=== PATIENT | male | born 1970 | race Two or more races ===

== ENCOUNTER 2024-11-05 16:37 | Inpatient (IN) | payer BC, OTHER ==
[~2024-11-05] VITALS: Ht 162.6 cm; Wt 73.3 kg
--- NOTE | 2024-11-05 16:47 | ED.PDOC ---
HPI Comments HPI: M who is slovak speaking was BIBA w/ the c/c of hypotension. EMS report that the pt was picking up some paper work at Dr. Juliann Leblanc when they checked the pt in due from looking weak and having jaundice for which the pt had a BP of 72/53 and called EMS. Upon EMS arrival the pt informed them that he started Dialysis for Kidney Failure and Chemo Therapy for Liver Cancer this month. EMS note that the Pt's O2 SAT was 98%RA. Denies Any other Symptoms. Patient is not currently on hospice. Initial Vitals BP:72/53 O2 Sat:98% RA Past Medical history: Dialysis for Kidney Failure (Friday, , Friday), Liver Cancer with possible meds and is in Chemo Therapy Past Surgical history: Denies Any Medications: Social History: Denies smoking, ETOH, and drug use. Allergies: NKDA HPI: Poor Historian. REVIEW OF SYSTEMS: CONSTITUTIONAL: Denies acute: fever, diaphoresis, chills, HEAD: Denies acute: headache, photophobia Eyes: Denies acute: Double vision, vision loss, eye pain, eye discharge. EARS: Denies acute: tinnitus, hearing loss, ear discharge, ear pain, THROAT: Denies acute: sore throat, swelling, difficulty swallowing , pain with swallowing, change in voice. NECK: Denies acute: neck pain, neck swelling, stiff neck. HEART: Denies acute : chest pain, palpitations, LUNGS: Denies acute: SOB, wheezing, cough, hemoptysis ABDOMEN: Denies acute: , Nausea, Vomiting, diarrhea, melena , hematemesis, hematochezia SKIN: Denies acute: rash, redness, lesions, itchiness. EXTREMITIES: Denies acute: calf pain, numbness, tingling, weakness, denies pain in extremity. Denies acute: Low back pain. Neuro: Denies acute: focal neurological deficit, motor or sensory focal neurological deficit, tremors, seizure like activity, confusion, dizziness, change in mental status, loss of bowel or bladder function, cauda equina like symptoms. : Denies acute: dysuria, hematuria, flank pain, increase in urinary frequency. PSYCH: Denies acute: hallucination, suicidal ideation, homicidal ideation. PHYSICAL EXAM: General: -----xnxe-yo-xxommbis---acute distress, awake and alert. Head: normocephalic, atraumatic. Neck: supple, trachea is midline, no swelling. Throat: Normal phonation. Eyes:, no erythema, no purulent discharge, no proptosis, Heart: regular rate, regular rhythm, no significant murmur appreciated. Lungs: no apparent respiratory distress, Able to speak in full sentences. No wheezing, no rhonchi, no crackles. No stridors Clear to auscultation bilaterally. Abdomen: generalized tender to palpation, non distended, soft, no guarding, no rebound, + bowel sounds. Neuro: Awake, Alert, oriented to name, self, situation, follows commands GCS=15. Speech is normal. Skin: no petechia, no purpura, no cyanosis, non-pale, noted jaundice. Lower extremities: --3/4 b/l - Pitting edema no deformity, no focal swelling, no calf TTP. Makes eye contact. moves all four extremities. Face: no apparent facial droop. ED COURSE: DISCLAIMER: This medical document was created using an electronic medical record system with voice recognition software and computerized dictation system. Although this document has been carefully reviewed, there might still be some phonetic and typographical errors. Occasional wrong-word or "sound-alike" substitutions may have occurred due to the inherent limitations of voice recognition software. These areas are purely typographical due to imperfections of the software programs and do not reflect any compromise in the patient's medical care. Please read the chart carefully and recognize, using context, where these substitutions have occurred. Time Seen by MD: 16:45 Reviewed Notes: Nurses Notes, Medications, Allergies Allergies: Coded Allergies: NO KNOWN ALLERGIES (Unverified , 11/05/24) Home Meds No Active Prescriptions or Reported Meds Information Source: Emergency Med Personnel Mode of Arrival: EMS Past Medical History PAST MEDICAL HISTORY: Cancer (Liver Cancer and is in Chemo Therapy), ESRD (Friday, , Friday) Surgical History: Denies all surgeries Family History Family History: Reviewed,noncontributory to illness, Unknown Social History Smoker: Non-Smoker Alcohol: Denies ETOH Use Drugs: Denies Drug Use Lives In: Home Was a procedure done? Was a procedure done?: No CP Differential Dx Differential Diagnosis: N/A Comment As far as generalized weakness: Includes but not limited to thyroid disease, encephalopathy, electrolyte abnormality, sepsis, infection, intracranial pathology, drug adverse effects, arrhythmia, kidney insufficiency, ACS, CVA, malignancy, anemia X-Ray, Labs, Meds, VS Vital Signs Date Time Temp Pulse Resp B/P (MAP) Pulse Ox O2 Delivery O2 Flow Rate FiO2 11/05/24 20:00 98 11/05/24 20:00 97.7 97 16 88/55 (66) 98 97.7 11/05/24 18:00 91 16 92/56 (68) 98 11/05/24 17:52 95 Room Air* 0 21 11/05/24 17:40 82 16 98 Room Air* 0 21 11/05/24 17:15 97.4 86 16 86/54 (65) 98 97.4 11/05/24 17:08 98.6 86 20 81/57 98 98.6 11/05/24 16:41 87 Lab Test 11/05/24 19:55 11/05/24 19:31 11/05/24 18:08 11/05/24 17:10 Range/Units Prothrombin Time 41.4 H 9.3-11.8 sec Prothrombin Time INR 4.54 *H 0.9-1.15 Activated Partial Thromboplast Time 61.6 H 24.5-34.5 SEC Troponin I High Sensitivity 28 30 27 </=54 ng/L Lactic Acid Level 2.0 2.5 *H 0.4-2.0 mmol/L White Blood Count 18.3 H 4.4-10.8 10^3/uL Red Blood Count 3.22 L 4.5-5.90 10^6/uL Hemoglobin 9.9 L 13.5-17.5 g/dL Hematocrit 29.1 L 41.0-53.0 % Mean Corpuscular Volume 90.3 80.0-100.0 fL Mean Corpuscular Hemoglobin 30.7 28.0-32.0 pg Mean Corpuscular Hemoglobin Concent 34.0 32.0-36.0 g/dL Red Cell Distribution Width 19.6 H 11.8-14.3 % Platelet Count 151 140-450 10^3/uL Mean Platelet Volume 8.7 6.9-10.8 fL Neutrophils (%) (Auto) 62.9 37.0-80.0 % Lymphocytes (%) (Auto) 31.2 10.0-50.0 % Monocytes (%) (Auto) 4.9 0.0-12.0 % Eosinophils (%) (Auto) 0.4 0.0-7.0 % Basophils (%) (Auto) 0.6 0.0-2.0 % Neutrophils # (Auto) 11.5 H 1.6-8.6 10 ^3/uL Lymphocytes # (Auto) 5.7 H 0.4-5.4 10 ^3/uL Monocytes # (Auto) 0.9 0-1.3 10 ^3/uL Eosinophils # (Auto) 0.1 0-0.8 10 ^3/uL Basophils # (Auto) 0.1 0-0.2 10 ^3/uL Nucleated Red Blood Cells 0.1 % B-Type Natriuretic Peptide 348.36 0-100 pg/mL Sodium Level 129 L 136-145 mmol/L Potassium Level 3.6 3.5-5.1 mmol/L Chloride Level 89 L 98-107 mmol/L Carbon Dioxide Level 29 20-31 mmol/L Anion Gap 11 5-15 Blood Urea Nitrogen 32 H 9-23 mg/dL Creatinine 3.61 H 0.700-1.30 mg/dL Glomerular Filtration Rate Calc 19 >90 mL/min BUN/Creatinine Ratio 8.9 L 10.0-20.0 Serum Glucose 79 74-106 mg/dL Calcium Level 8.7 8.7-10.4 mg/dL Magnesium Level 2.1 1.6-2.6 mg/dL Total Bilirubin > 35.0 H 0.2-1.0 mg/dL Aspartate Amino Transferase (AST) 275 H 13-40 U/L Alanine Aminotransferase (ALT) 144 H 7-40 U/L Alkaline Phosphatase 1498 H 46-116 U/L Total Protein 4.2 L 5.7-8.2 g/dL Albumin 2.7 L 3.2-4.8 g/dL Lipase 25 12-53 U/L Test 11/05/24 17:01 Range/Units POC Glucose 73 70-106 mg/dl [facility] [address] [facility] [address] Ph: [phone] DIAGNOSTIC IMAGING Diagnostic Imaging Report : [id number] Signed PATIENT: MARTA PARISI ACCT: [id number] UNIT: [id number] : 1970 LOC: ER ROOM / BED: / AGE / SEX: 54 / M ADM STATUS: REG ER SERVICE 165 ORDERING PHYSICIAN: ANGE AGUAYO DO PROCEDURE(s): CXRP - CHEST PORTABLE REASON: hypotension ORDER NUMBER(s): [id number], ACCESSION NUMBER(s): [id number] CHEST RADIOGRAPH Indication: hypotension Technique: XY CHEST PORTABLE COMPARISON: None FINDINGS: Right IJ catheter tip projects over the cavoatrial junction. The cardiac silhouette is enlarged. The lungs demonstrate bilateral patchy airspace opacities. The pulmonary vasculature is prominent. Small bilateral pleural effusion. There is no pneumothorax. IMPRESSION: As above ATED BY: ULI HORAN MD DICTATED DATE/TIME: 11/05/241741 SIGNED BY: ULI HORAN MD SIGNED DATE/TIME: 11/05/241741 [place] [address] Ph: [phone] DIAGNOSTIC IMAGING Diagnostic Imaging Report : [id number] Signed PATIENT: MARTA PARISI ACCT: [id number] UNIT: [id number] : 1970 LOC: ER ROOM / BED: / AGE / SEX: 54 / M ADM STATUS: REG ER SERVICE 165 ORDERING PHYSICIAN: ANGE AGUAYO DO PROCEDURE(s): ABPL - CT AB PEL WO CON-NO ORAL OR IV REASON: hypotension, abd pain, liver Ca ORDER NUMBER(s): [id number], ACCESSION NUMBER(s): [id number] COMPUTERIZED TOMOGRAPHY ABDOMEN AND PELVIS WITHOUT CONTRAST REASON FOR EXAM: hypotension, abd pain, liver Ca COMPARISON: None TECHNIQUE: Spiral scans were acquired from the diaphragm to the symphysis pubis without intravenous contrast administration. 2-D coronal and sagittal reformatted images were provided. Radiation optimization: All CT scans at this facility use at least one of these dose optimization techniques: Automated exposure control mA and/or kV adjustment per patient size (includes targeted exams where dose is matched to clinical indication) or iterative reconstruction. RADIATION DOSE: CTDI: 16 mGy DLP: 941 mGy-cm FINDINGS: There is a 5 mm pulmonary nodule in the right upper lobe near the minor fissure. There is mild dependent atelectasis in bilateral lower lobes. There are small bilateral pleural effusions, casm-[id number]-[id number]-right. There is no pericardial effusion. There is partial visualization of a catheter with the tip in the right atrium. Evaluation of the abdominal organs is suboptimal in the absence of intravenous contrast. Evaluation is further degraded by streak artifact from the patient's arms. The spleen is not enlarged. The liver is significantly enlarged and contains numerous masses, most of which are hypodense but some of which contain hyperdense material. No definite calcified gallstone is identified. The gallbladder wall appears thickened. There is a small amount of ascites. There is bilateral intrahepatic biliary dilation likely secondary to compression of the biliary tree near the hilum. There is a 1.3 cm short axis lymph node at the hepatic hilum. Unenhanced appearance of the pancreas is grossly unremarkable. The adrenal glands are within normal limits. The kidneys are similar in size. There is no hydronephrosis of either kidney. 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 The urinary bladder is grossly unremarkable. The prostate and seminal vesicles are within normal limits. The colonic stool burden is small to moderate. The appendix is not seen. The rectal wall appears diffusely thickened although this may be due to nondistention. There is diffuse anasarca. There is no abdominal aortic aneurysm. There is no distention of the small bowel to suggest bowel obstruction. No acute osseous abnormality is identified. IMPRESSION: Hepatomegaly with numerous liver masses. Small amount of ascites. Diffuse anasarca Gallbladder wall thickening, likely secondary to ascites. Evaluation of the abdominal organs is suboptimal in the absence of intravenous contrast. Small bilateral pleural effusions, [id number]-kkgg-right. ATED BY: TACHO BORGES MD DICTATED DATE/TIME: 11/05/241812 SIGNED BY: TACHO BORGES MD SIGNED DATE/TIME: 11/05/241812 CC: Time of 1ST Reevaluation: 17:15 Reevaluation 1ST: Unchanged Time of 2ND Reevaluation: 21:15 (Earlier we were told that the patient baseline blood pressure runs low.) Patient Education/Counseling: Diagnosis, Treatment, Prognosis Family Education/Counseling: No Family Present Comments MDM: patient presented with the above HPI.------workup was initiated. patient was found with the above mentioned diagnosis. the following medications were ordered: please refer to order lists of meds and tests obtained by myself Dr. Aguayo. Patient ED course and VS have been stabilized. Patient has been reassessed in the ED and remained in a stable condition. Pertinent incidental findings were discussed with the patient and/or family. Patient/family voices understanding and is agreeable with plan. Patient has been observed in the ED adequate length of time to insure improvement/stability. Escalation of care considered: Consideration of escalation to observation or admission Patient has baseline hypotension. Patient appears very weak and jaundice. Patient was ADMITTED to the medicine team for further evaluation and treatment of their presentation. All the reports of any imaging studies that were ordered by myself were reviewed by myself. SEPSIS Sepsis Screen Physician Orders Electrocardigram (11/05/24 16:44) Mail Distribution Clerk (11/05/24 ) Chest Portable (11/05/24 16:51) Ct Ab Pel Wo Con-No Oral Or Iv (11/05/24 16:51) Vital Signs Date Time Temp Pulse Resp B/P (MAP) Pulse Ox O2 Delivery O2 Flow Rate FiO2 11/05/24 20:00 98 11/05/24 20:00 97.7 97 16 88/55 (66) 98 97.7 11/05/24 18:00 91 16 92/56 (68) 98 11/05/24 17:52 95 Room Air* 0 21 11/05/24 17:40 82 16 98 Room Air* 0 21 11/05/24 17:15 97.4 86 16 86/54 (65) 98 97.4 11/05/24 17:08 98.6 86 20 81/57 98 98.6 11/05/24 16:41 87 Laboratory Tests Test 11/05/24 17:10 11/05/24 18:08 11/05/24 19:31 Lactic Acid Level 2.5 mmol/L (0.4-2.0) *H 2.0 mmol/L (0.4-2.0) White Blood Count 18.3 10^3/uL (4.4-10.8) H Departure 1 Departure Time of Disposition: 19:02 Impression: Primary Impression: Hypotension Additional Impressions: Liver cancer Jaundice Hyperbilirubinemia Hypoalbuminemia Chronic renal failure End-stage renal disease on hemodialysis Leukocytosis Elevated LFTs Disposition: ADMITTED INPATIENT Admit to: Tele Condition: Guarded e-Prescriptions No Active Prescriptions or Reported Meds Discharged With: Self Critical Care Note Critical Care Time?: Yes (1 hr-critical care time only) Heart Score Heart Score: Heart Score Response (Comments) Value History N/A 0 EKG N/A 0 Age N/A 0 Risk Factors N/A 0 Troponin N/A 0 Total 0 I personally scribed for ANGE AGUAYO DO ([email or web address]) on 11/05/24 at 16:47. Electronically submitted by Jamey Collins ([email or web address]). I personally scribed for ANGE AGUAYO DO ([email or web address]) on 11/05/24 at 18:09. Electronically submitted by Jamey Collins ([email or web address]). ANGE AGUAYO DO Nov 05, 2024 16:47
[2024-11-05] MEDS: SODIUM CHLORIDE 0.9% 500 ML IV ONE (17:13)
[2024-11-05 17:40] VITALS: PULSE 82; RESP 16; O2SAT 98
--- NOTE | 2024-11-05 17:42 | DVH ---
CHEST RADIOGRAPH Indication: hypotension Technique: XY CHEST PORTABLE COMPARISON: None FINDINGS: Right IJ catheter tip projects over the cavoatrial junction. The cardiac silhouette is enlarged. The lungs demonstrate bilateral patchy airspace opacities. The pu lmonary vasculature is prominent. Small bilateral pleural effusion. There is no pneumothorax. IMPRESSION: As above
[2024-11-05 17:45] LABS: Calcium 8.7 mg/dL (8.7-10.4); Potassium 3.6 mmol/L (3.5-5.1)
[2024-11-05 17:46] LABS: Bilirubin, Total > 35.0 mg/dL (0.2-1.0); Chloride 89 mmol/L (98-107); Sodium 129 mmol/L (136-145)
[2024-11-05] MEDS: DEXTROSE (25%) 10 ML SYRG IV ONE (17:49)
[2024-11-05 18:03] LABS: Anion Gap 11 (5-15); BUN/Creatinine Ratio 8.9 (10.0-20.0)
--- NOTE | 2024-11-05 18:15 | DVH ---
COMPUTERIZED TOMOGRAPHY ABDOMEN AND PELVIS WITHOUT CONTRAST REASON FOR EXAM: hypotension, abd pain, liver Ca COMPARISON: None TECHNIQUE: Spiral scans were acquired from the diaphragm to the symphysis pubis without intravenous c ontrast administration. 2-D coronal and sagittal reformatted images were provided. Radiation optimiza tion: All CT scans at this facility use at least one of these dose optimization techniques: Automated exposure control mA and/or kV adjustment per patient size (includes targeted exams where dose is mat ched to clinical indication) or iterative reconstruction. RADIATION DOSE: CTDI: 16 mGy DLP: 941 mGy-cm FINDINGS: There is a 5 mm pulmonary nodule in the right upper lobe near the minor fissure. There is mild depend ent atelectasis in bilateral lower lobes. There are small bilateral pleural effusions, noas-aihoeof-x leyva-right. There is no pericardial effusion. There is partial visualization of a catheter with the ti p in the right atrium. Evaluation of the abdominal organs is suboptimal in the absence of intravenous contrast. Evaluation i s further degraded by streak artifact from the patient's arms. The spleen is not enlarged. The liver is significantly enlarged and contains numerous masses, most of which are hypodense but some of which contain hyperdense material. No definite calcified gallstone is identified. The gallbladder wall abigail ears thickened. There is a small amount of ascites. There is bilateral intrahepatic biliary dilation likely secondary to compression of the biliary tree near the hilum. There is a 1.3 cm short axis lymp h node at the hepatic hilum. Unenhanced appearance of the pancreas is grossly unremarkable. The adren al glands are within normal limits. The kidneys are similar in size. There is no hydronephrosis of e ither kidney. 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 The urinary bladder i s grossly unremarkable. The prostate and seminal vesicles are within normal limits. The colonic stool burden is small to moderate. The appendix is not seen. The rectal wall appears diffusely thickened a lthough this may be due to nondistention. There is diffuse anasarca. There is no abdominal aortic ane urysm. There is no distention of the small bowel to suggest bowel obstruction. No acute osseous abnor mality is identified. IMPRESSION: Hepatomegaly with numerous liver masses. Small amount of ascites. Diffuse anasarca Gallbladder wall thickening, likely secondary to ascites. Evaluation of the abdominal organs is suboptimal in the absence of intravenous contrast. Small bilateral pleural effusions, fhiu-[id number]-xbpr-right.
[2024-11-05 18:16] LABS: Alanine Aminotransferase 144 U/L (7-40); Albumin 2.7 g/dL (3.2-4.8); Alkaline Phosphatase 1498 U/L (46-116); Blood Urea Nitrogen 32 mg/dL (9-23); Carbon Dioxide 29 mmol/L (20-31); Glucose 79 mg/dL (74-106); Lipase 25 U/L (12-53); Magnesium 2.1 mg/dL (1.6-2.6); Total Protein 4.2 g/dL (5.7-8.2)
[2024-11-05 18:19] LABS: Lactic Acid w/Reflex 2.5 mmol/L (0.4-2.0)
[2024-11-05 18:24] LABS: Hematocrit 29.1 % (41.0-53.0); Hemoglobin 9.9 g/dL (13.5-17.5); Mean Corpuscular Hemoglobin 30.7 pg (28.0-32.0); Mean Corpuscular Volume 90.3 fL (80.0-100.0); Nucleated Red Blood Cells % 0.1 %
[2024-11-05] MEDS: ALBUMIN 25% 100 ML IV ONE (19:25)
[2024-11-05] MEDS: ALBUMIN 25% 50 ML IV ONE (20:41)
[2024-11-05] MEDS: LACTATED RINGER'S 500 ML IV ONE (20:41)
[2024-11-05] MEDS ORDERED: DOCUSATE SOD 100 MG CAP PO PRN (20:45)
[2024-11-05] MEDS ORDERED: ONDANSETRON HCL 4 MG/2 ML VIAL IV PRN (20:45)
[2024-11-05] MEDS ORDERED: MORPHINE SULFATE INJ 2 MG/ml SYRG IV PRN (20:45)
[2024-11-05] MEDS ORDERED: NITROGLYCERIN 0.4 MG SL TAB SL PRN (20:45)
[2024-11-05] MEDS ORDERED: ACETAMINOPHEN 325 MG TAB PO PRN (20:45)
--- NOTE | 2024-11-05 23:23 | ECG ---
[facility] Test Date: 2024-11-05 Test Time: 16:41:49 Pat Name: MARTA PARISI Department: Room: [address] [place] [address] Gender: M Program Support Clerk: LIA : 1970 Requested By: ANGE AGUAYO Order Number: [id number] Reading MD: Ken Zabala Measurements Intervals Francis Rate: 87 P: 31 MD: 152 QRS: 31 QRSD: 95 T: 36 QT: 375 QTc: 451 Interpretive Statements Sinus rhythm Electronically Signed On 11-06-2024 16:45:02 PDT by Ken Zabala Please click the below link to view image of tracing.
[2024-11-05] MEDS: SODIUM CHLORIDE 0.9% 1,000 ML IV ONE (23:24)
[2024-11-06] VITALS (8 sets, daily range): BP systolic 91–99; BP diastolic 55–60; PULSE 90–100; RESP 16–22; TEMP 97.7–98.2; O2SAT 93–95
[2024-11-06 00:22] LABS: Partial Thromboplastin Time 61.6 SEC (24.5-34.5); Prothrombin Time 41.4 sec (9.3-11.8)
[2024-11-06 00:30] LABS: INR 4.54 (0.9-1.15)
[2024-11-06] MEDS ORDERED: VANCOMYCIN PER PHARMACY 0 MG IV SCH (00:30)
[2024-11-06] MEDS: VANCOMYCIN 1GM/250ML KIT 250 ML IV SCH (01:36)
[2024-11-06] MEDS: PIPERACILLIN-TAZOB 3.375GM 100 ML IV ONE (03:53)
[2024-11-06 04:53] LABS: Hematocrit 25.5 % (41.0-53.0); Hemoglobin 8.8 g/dL (13.5-17.5); Mean Corpuscular Hemoglobin 31.0 pg (28.0-32.0); Mean Corpuscular Volume 89.9 fL (80.0-100.0)
[2024-11-06 04:59] LABS: Calcium 9.0 mg/dL (8.7-10.4); Potassium 3.6 mmol/L (3.5-5.1)
[2024-11-06 05:08] LABS: Alkaline Phosphatase 1352 U/L (46-116); Chloride 90 mmol/L (98-107); Sodium 128 mmol/L (136-145)
[2024-11-06 05:22] LABS: Anion Gap 11 (5-15); BUN/Creatinine Ratio 7.9 (10.0-20.0)
[2024-11-06] MEDS: LACTATED RINGER'S 1,000 ML IV SCH (05:24)
[2024-11-06 05:38] LABS: Blood Urea Nitrogen 31 mg/dL (9-23); Carbon Dioxide 27 mmol/L (20-31); Glucose 73 mg/dL (74-106)
[2024-11-06 05:39] LABS: Alanine Aminotransferase 126 U/L (7-40); Albumin 2.8 g/dL (3.2-4.8); Total Protein 4.1 g/dL (5.7-8.2)
[2024-11-06 05:57] LABS: Smudge Cells 1 /100 WBC; Total Cells Counted 100.0 (100)
[2024-11-06 06:16] LABS: Bilirubin, Total 33.1 mg/dL (0.2-1.0)
--- NOTE | 2024-11-06 06:38 | DVH ---
EXAM: US LIVER HISTORY: Rule out hepatobiliatry tree pathology, abdominal distention COMPARISON: CT scan of the abdomen and pelvis dated 11/05/2024. TECHNIQUE: Right upper quadrant abdominal ultrasound was performed. FINDINGS: Sludge and gallstones are identified in the gallbladder, without gallbladder wall thickening. The pat ient was not tender to transducer pressure over the gallbladder. There is marked heterogeneous attenu ation throughout the liver. The liver measures 21.1 cm longitudinal. There is hepatopetal portal veno us color Doppler flow. The common duct measures 5.6mm in diameter. The partially visualized pancreas is unremarkable. The intrahepatic portion of the IVC is patent. No upper abdominal aortic ectasia. Th e right kidney measures 12.9 cm in length and is normal in appearance. The left kidney measures 11.1 cm in length and is normal in appearance. The spleen was not visualized sonographically. There are sm all bilateral pleural effusions. IMPRESSION: 1. Hepatomegaly and marked heterogeneous attenuation throughout the liver. It is uncertain if this ap pearance is due to advanced cirrhosis and/or diffuse neoplastic infiltration. 2. Small bilateral pleural effusions. 3. Cholelithiasis and gallbladder sludge without other sonographic evidence of acute cholecystitis.
--- NOTE | 2024-11-06 06:40 | DVHHPRES ---
History of Present Illness Resident Creating Document: CAROLE LOPEZ RESIDENT History of Present Illness Garcia Burns is a 54-year-old male with past medical history of liver cancer diagnosed approximately 2 months ago, ESRD and on dialysis since 1 month came to the ED with chief complaints of feeling weak and hypotension which was 72/ 53 at clinic. Patient states that he has had jaundice since 1 month and is undergoing chemotherapy since 2 months. Patient denies any nausea, headaches, dizziness, dysuria, blood in the stool. Patient stated that he had 1 episode of vomiting which was nonbloody, green watery stools 4 days ago. Patient is on 1.5 L oxygen and does not use home oxygen. His last bowel movement was 4 days ago. Patient states that he has 15 lb weight loss since the last 2 months. Past surgical history: Denies Family history: Reviewed, noncontributory Social history: Patient quit smoking 8 months ago, and patient's last alcohol drink was 4 months ago, denies any drug use Lives with: Family PCP: Dr. Queen Review of Systems Review of Systems Generalized jaundice Constitutional: Yes: Weakness, Other (Weight loss) Eyes: Other (Jaundice) ENT: No: Ear pain, Ear discharge, Nose pain, Nose discharge, Nose congestion, Mouth pain, Mouth swelling, Throat pain, Throat swelling, Other Respiratory: Shortness of breath; No: Cough, Dry, SOB with excertion, Wheezing, Hemoptysis, Pleuritic Pain, Sputum, Wheezing, Other Cardiovascular: No: Chest Pain, Palpitations, Orthopnea, Paroxysmal Noc. Dyspnea, Edema, Lt Headedness, Other Gastrointestinal: No: Nausea, Vomiting, Abdominal Pain, Diarrhea, Constipation, Melena, Hematochezia, Other Genitourinary: No Dysuria, No Frequency, No Incontinence, No Hematuria, No Retention, No Other Musculoskeletal: No: other, neck pain, shoulder pain, arm pain, back pain, hand pain, leg pain, foot pain Skin: No: Rash, Lesions, Jaundice, Bruising, Other Neurological: No: Weakness, Numbness, Incoordination, Change in speech, Confusion, Seizures, Other Allergies: Coded Allergies: NO KNOWN ALLERGIES (Unverified , 11/05/24) Medications Current Medications Medications Dose Ordered Sig/Darryl Route Start Time Stop Time Status Last Admin Dose Admin Acetaminophen/ Hydrocodone Bitart 1 tab Q4HP PRN PO 8/29/25 20:45 Ondansetron HCl 4 mg Q4HP PRN IV 11/05/24 20:45 Docusate Sodium 100 mg BIDPRN PRN PO 11/05/24 20:45 Morphine Sulfate 2 mg Q4HPRN PRN IV 11/05/24 20:45 Piperacillin Sod/ Tazobactam Sod 100 ml @ 25 mls/hr Q12HR IV 11/06/24 10:00 Vancomycin HCl 0 ml @ 0 mls/hr UD IV 11/06/24 00:30 UNV Lactated Ringer's 1,000 ml @ 50 mls/hr Q20H IV 11/06/24 00:30 11/06/24 05:24 50 MLS/HR Exam Vital Signs Vital Signs Date Time Temp Pulse Resp B/P (MAP) Pulse Ox O2 Delivery O2 Flow Rate FiO2 11/06/24 04:00 101 11/06/24 03:00 99/58 (72) 11/06/24 01:30 94 11/06/24 00:30 16 11/05/24 22:00 97.6 97.6 11/05/24 17:52 Room Air* 0 21 Exam General: Patient alert and oriented in person, place and time. Patient following commands. Generalized jaundice HEENT: Normocephalic, atraumatic, moist mucous membranes Respiratory/pulmonary: Clear lungs bilaterally, vesicular murmurs present in almost all lung poon, no associated crackles or wheezes. Cardiovascular: Normal heart sounds S1 and S2 with no associated murmurs Abdomen: there is no pain to palpation in any of the abdominal quadrants, no palpable masses. Moderately distended Extremities: Bilateral +1 pitting edema Peripheral Pulses: 3+ Radial (R). 3+ Radial (L). 3+ Dorsalis pedis (R). 3+ Dorsalis pedis(L) Skin: No rashes or pruritus, there is no sacral edema present at this time. Neurological: Intact cranial nerves with no focal neurologic deficits Rectal Exam : No masses were detected, no blood was seen on finger Labs/Xrays Labs Test 11/06/24 04:25 11/06/24 01:17 11/05/24 19:55 11/05/24 19:31 Range/Units White Blood Count 20.0 H 4.4-10.8 10^3/uL Red Blood Count 2.84 L 4.5-5.90 10^6/uL Hemoglobin 8.8 L 13.5-17.5 g/dL Hematocrit 25.5 #L 41.0-53.0 % Mean Corpuscular Volume 89.9 80.0-100.0 fL Mean Corpuscular Hemoglobin 31.0 28.0-32.0 pg Mean Corpuscular Hemoglobin Concent 34.5 32.0-36.0 g/dL Red Cell Distribution Width 20.0 H 11.8-14.3 % Platelet Count 147 140-450 10^3/uL Mean Platelet Volume 8.7 6.9-10.8 fL Neutrophils (%) (Auto) 37.0-80.0 % Lymphocytes (%) (Auto) 10.0-50.0 % Monocytes (%) (Auto) 0.0-12.0 % Basophils (%) (Auto) 0.0-2.0 % Neutrophils # (Auto) 1.6-8.6 10 ^3/uL Lymphocytes # (Auto) 0.4-5.4 10 ^3/uL Monocytes # (Auto) 0-1.3 10 ^3/uL Differential Total Cells Counted 100.0 100 Neutrophils % (Manual) 81 H 37.0-80.0 Band Neutrophils % (Manual) 0 Lymphocytes % (Manual) 12 10.0-50.0 Monocytes % (Manual) 5 0-12 Eosinophils % (Manual) 0 0-7 Basophils % (Manual) 0 0.0-2.0 Metamyelocytes % (manual) 0 Myelocytes % (Manual) 0 Promyelocytes % (Manual) 0 Blast Cells % (Manual) 0 Reactive Lymphocytes 2 Smudge Cells 1 /100 WBC Platelet Estimate Decreased Sodium Level 128 L 136-145 mmol/L Potassium Level 3.6 3.5-5.1 mmol/L Chloride Level 90 L 98-107 mmol/L Carbon Dioxide Level 27 20-31 mmol/L Anion Gap 11 5-15 Blood Urea Nitrogen 31 H 9-23 mg/dL Creatinine 3.94 H 0.700-1.30 mg/dL Glomerular Filtration Rate Calc 17 >90 mL/min BUN/Creatinine Ratio 7.9 L 10.0-20.0 Serum Glucose 73 L 74-106 mg/dL Calcium Level 9.0 8.7-10.4 mg/dL Total Bilirubin > 35.0 H 0.2-1.0 mg/dL Aspartate Amino Transferase (AST) 244 H 13-40 U/L Alanine Aminotransferase (ALT) 126 H 7-40 U/L Alkaline Phosphatase 1352 H 46-116 U/L Total Protein 4.1 L 5.7-8.2 g/dL Albumin 2.8 L 3.2-4.8 g/dL Ammonia 47 H 11-32 umol/L Plasma/Serum Blood Alcohol < 3.0 <10 mg/dL Prothrombin Time 41.4 H 9.3-11.8 sec Prothrombin Time INR 4.54 *H 0.9-1.15 Activated Partial Thromboplast Time 61.6 H 24.5-34.5 SEC Troponin I High Sensitivity 28 </=54 ng/L Lactic Acid Level 2.0 0.4-2.0 mmol/L Test 11/05/24 18:08 11/05/24 17:10 11/05/24 17:01 Range/Units Eosinophils (%) (Auto) 0.4 0.0-7.0 % Eosinophils # (Auto) 0.1 0-0.8 10 ^3/uL Basophils # (Auto) 0.1 0-0.2 10 ^3/uL Nucleated Red Blood Cells 0.1 % B-Type Natriuretic Peptide 348.36 0-100 pg/mL Magnesium Level 2.1 1.6-2.6 mg/dL Lipase 25 12-53 U/L POC Glucose 73 70-106 mg/dl SEPSIS Sepsis Screen Date sepsis recognized/suspect: Nov 05, 2024 Time Sepsis recognized/suspect: 1744 Recent Procedure: No On Antibiotic Therapy: No Respiratory Rate >20: No Heart Rate >90: No Temp<36 C (96.8 F) or >38.3 C: No SBP <90 or MAP <65 mmHG: Yes New Acute Mental Status Change: No Is the patient on CPAP, BIPAP,: No Physician Orders Blood Culture (11/05/24 23:48) Urinalysis (11/05/24 23:54) Drug Screen (11/05/24 23:54) Comprehensive Hepatitis Panel (11/06/24 00:24) Piperacillin-Tazob 3.375gm (Zosyn 3.375g (11/06/24 10:00) Paracentesis (11/06/24 00:24) Lactate Dehydrogenase, Fluid (11/06/24 00:24) Protein, Body Fluid (11/06/24 00:24) Body Fluid Culture W/ Gs (11/06/24 00:24) Glucose Body Fluid (11/06/24 00:24) Body Fluid Ph (11/06/24 00:24) Gram Stain (11/06/24 00:24) Body Fluids, Diff. Cell Count (11/06/24 00:24) Stool Occult Blood (11/06/24 00:24) Vancomycin Per Pharmacy (11/06/24 00:30) LIVER (11/06/24 00:24) Echo 2d Mode Cardiac Dop (11/06/24 00:24) Lactated Ringer's (11/06/24 00:30) Albumin 25% (Albutein) (11/06/24 06:00) Drug Screen (11/06/24 00:41) Vancomycin Per Pharmacy Protoc (11/06/24 00:49) Afp Serum Tumor Marker (11/06/24 02:00) Mrsa Screen (11/06/24 05:12) * Family Law Legal Assistant Consult (11/06/24 05:12) * Dietary Consult (11/06/24 05:12) Vital Signs Date Time Temp Pulse Resp B/P (MAP) Pulse Ox O2 Delivery O2 Flow Rate FiO2 11/06/24 04:00 101 11/06/24 03:00 100 99/58 (72) 11/06/24 01:30 94 96/55 (69) 94 11/06/24 00:30 97 16 93/56 (68) 94 11/06/24 00:00 99 Laboratory Tests Test 11/05/24 19:31 11/06/24 04:25 Lactic Acid Level 2.0 mmol/L (0.4-2.0) White Blood Count 20.0 10^3/uL (4.4-10.8) H Medications Medications Dose Ordered Sig/Darryl Route Start Time Stop Time Status Last Admin Dose Admin Albumin Human 50 ml @ 100 mls/hr ONCE ONCE IV 11/05/24 20:30 11/05/24 20:59 DC 11/05/24 20:41 100 MLS/HR Albumin Human 100 ml @ 100 mls/hr ONCE ONCE IV 11/05/24 19:15 11/05/24 20:14 DC 11/05/24 19:25 100 MLS/HR Ceftriaxone Sodium 50 ml @ 100 mls/hr ONCE ONCE IV 11/05/24 19:15 11/05/24 19:44 DC 11/05/24 19:24 100 MLS/HR Lactated Ringer's 500 ml @ 500 mls/hr ONCE ONCE IV 11/05/24 20:30 11/05/24 21:29 DC 11/05/24 20:41 500 MLS/HR Lactated Ringer's 1,000 ml @ 50 mls/hr Q20H IV 11/06/24 00:30 11/06/24 05:24 50 MLS/HR Piperacillin Sod/ Tazobactam Sod 100 ml @ 25 mls/hr ONCE ONCE IV 11/06/24 01:00 11/06/24 04:59 DC 11/06/24 03:53 25 MLS/HR Sodium Chloride 1,000 ml @ 1,000 mls/hr Q1H ONCE IV 11/05/24 23:00 11/05/24 23:59 DC 11/05/24 23:24 1,000 MLS/HR Vancomycin HCl 250 ml @ 250 mls/hr Q1H IV 11/06/24 01:00 11/06/24 02:59 DC 11/06/24 02:41 250 MLS/HR Assessment/Plan Assessment/Plan # Sepsis likely due to SBP # Hepatic carcinoma stage unknown # Hepatic cirrhosis likely due to and underlying Liver carcinoma # Hepatic cirrhosis versus secondary last alcohol intake due to prolonged alcohol use last alcohol drink was 4 months back # rule out acute PET hepatitis # moderate ascites # atelectasis secondary due to moderate ascites - diagnostic paracentesis with IR when INR is less than 1.5 - patient is started on IV vancomycin, Pip -Shaggy - ordered liver ultrasound - AFP ordered - albumin 25% given - Meld score: 47 - Child -Pug score - Class C, Life expectency 1-3 years. - hepatitis panel, pending # secondary hypocoagulable state, INR- 4.5 secondary due to liver failure # normocytic anemia - GI consulted - Vitamin K IV given # Hepatic encephalopathy - near high, given lactulose 30 mL, docusate sodium\ # Moderate malnutrition # metabolic encephalopathy secondary to hypoglycemia # Hyperbilirubinemia with transaminitis # hypoalbuminemia # ESRD on hemodialysis: [place]elmo consulted(Friday, , Friday) # leukocytosis Goals of care addressed with the patient for more than 27 minutes: Full code status Case discussed with Dr. Olivia , patient and nurse Plan discussed with: Patient My Orders Orders - CAROLE LOPEZ Procedure Category Date Status Time Admit ADMIT 11/05/24 Transmitted 20:36 Allergies BAY 11/05/24 In Process 20:36 Code Status CODE 11/05/24 Transmitted 20:36 Oxygen Per Hour RT 11/05/24 Transmitted 20:36 Hydrocodone-Acet PHA 11/05/24 In Process 5/325mg Tab ([place] 20:45 Ondansetron Hcl PHA 11/05/24 In Process (Zofran) 20:45 Docusate Sodium PHA 11/05/24 In Process Capsule (Colace 20:45 Npo (Nothing By DIET 11/06/24 Transmitted Mouth) Diet Breakfast Condition: Serious BAY 11/05/24 In Process 20:36 Bedrest With Bathroom BAY 11/05/24 In Process Privileg 20:36 Morphine Sulfate PHA 11/05/24 In Process Injection 20:45 Oxygen By Nasal RT 11/05/24 Transmitted Cannula 20:36 Stat Ekg For Chest BAY 11/05/24 In Process Pain 20:36 Notify Md Of Changes BAY 11/05/24 In Process From Base 20:36 E Tailer For BAY 11/05/24 In Process 24 Hours 20:36 Emergency Dysrhythmia BAY 11/05/24 In Process Protocol 20:36 Rhythm Strips Once BAY 11/05/24 In Process Every Shift 20:36 Blood Culture TAMIA 11/05/24 Uncollected 23:48 Urinalysis LAB 11/05/24 Logged 23:54 Drug Screen LAB 11/05/24 Logged 23:54 Mrsa Screen TAMIA 11/06/24 Logged 05:12 * Family Law Legal Assistant CONS 11/06/24 Transmitted Consult 05:12 * Dietary Consult CONS 11/06/24 Transmitted 05:12 Date of Service: Nov 06, 2024 Billing Provider: BRITTANY OLIVIA MD Common Visit Codes: [id number] INP/OBS CARE (HIGH) Secondary Visit Codes: [id number] CARE PLAN 30 MINUTES CAROLE LOPEZ Nov 06, 2024 06:40
[2024-11-06] MEDS: ALBUMIN 25% 100 ML IV ONE (06:51)
[2024-11-06] MEDS: PHYTONADIONE (VIT K)10 MG/ML 1ML VIAL SUBCUT ONE (07:07)
[2024-11-06] MEDS: PIPERACILLIN-TAZOB 3.375GM 100 ML IV SCH (09:52)
[2024-11-06] MEDS: LACTULOSE 20Gm/30ML SOLN PO SCH (09:52)
--- NOTE | 2024-11-06 11:34 | DVHINCON2 ---
Date of service: Nov 06, 2024 Referring Physician Gelacio Morrow [Resident] Reason for Consultation End-stage kidney disease History of Present Illness This is a 54-year-old male with history of hepatocellular cancer, acute kidney injury on intermittent hemodialysis for the past one month presenting to the emergency room because of generalized weakness and hypotension. As per the history obtained from the patient and his son who is at bedside patient undergoes treatment for his liver cancer at [place]. His last dialysis was on . Has been having ongoing issues with hypotension during dialysis. Patient has been admitted for further evaluation and workup. Past Medical History Liver cancer Acute kidney injury on intermittent hemodialysis Past Surgical History Denies Family History: Patient reports no known family medical history. Family History Family history: Reviewed, noncontributory Social History Social history: Patient quit smoking 8 months ago, and patient's last alcohol drink was 4 months ago, denies any drug use Lives with: Family PCP: Dr. Queen Allergies: Coded Allergies: NO KNOWN ALLERGIES (Unverified , 11/05/24) Home Meds No Active Prescriptions or Reported Meds Current Medications Current Medications Medications (Trade) Dose Ordered Sig/Darryl Route PRN Reason Start Time Stop Time Status Last Admin Acetaminophen (Tylenol Tablet) 325 mg Q4HP PRN PO MILD PAIN (1-3 PAIN SCALE) 11/05/24 20:45 11/06/24 00:40 DC Acetaminophen/ Hydrocodone Bitart ([place] 5/325MG Tab) 1 tab Q4HP PRN PO MODERATE PAIN (4-6 PAIN SCALE) 11/05/24 20:45 Ondansetron HCl (Zofran) 4 mg Q4HP PRN IV NAUSEA / VOMITING 11/05/24 20:45 11/06/24 10:12 DC Docusate Sodium (Colace Capsule) 100 mg BIDPRN PRN PO FOR CONSTIPATION 11/05/24 20:45 11/06/24 10:12 DC Morphine Sulfate 2 mg Q4HPRN PRN IV SEVERE PAIN (7-10 PAIN SCALE) 11/05/24 20:45 Nitroglycerin (Ntrostat Sublingual) 0.4 mg Q5MINP PRN SL FOR CHEST PAIN 11/05/24 20:45 11/05/24 23:49 DC Morphine Sulfate 2 mg Q30M PRN IV FOR CHEST PAIN 11/05/24 20:45 11/05/24 23:49 DC Piperacillin Sod/ Tazobactam Sod 100 ml @ 25 mls/hr Q12HR IV 11/06/24 10:00 11/06/24 09:52 Vancomycin HCl 0 ml @ 0 mls/hr UD IV 11/06/24 00:30 UNV Lactated Ringer's 1,000 ml @ 50 mls/hr Q20H IV 11/06/24 00:30 11/06/24 10:12 DC 11/06/24 05:24 Vancomycin HCl 250 ml @ 250 mls/hr Q1H IV 11/06/24 01:00 11/06/24 02:59 DC 11/06/24 02:41 Lactulose 30 ml BID PO 11/06/24 10:00 11/06/24 09:52 Review of Systems 12 point ROS negative except as in HPI Vital Signs Vital Signs Date Time Temp Pulse Resp B/P (MAP) Pulse Ox O2 Delivery O2 Flow Rate FiO2 11/06/24 08:45 98.2 93 17 95/60 (72) 95 98.2 11/05/24 17:52 Room Air* 0 21 Physical Exam AAOX3 HEENT: Normocephalic , Icteric Lungs : Diminished breath sounds at bases CVS : S1,S2 tachycardic Abd : Distended EQUINE BREEDER : No focal deficits Extremities: 2+ edema Labs/Diagnostic Data Labs Test 11/06/24 04:25 11/06/24 01:17 11/05/24 19:55 11/05/24 19:31 Range/Units White Blood Count 20.0 H 4.4-10.8 10^3/uL Red Blood Count 2.84 L 4.5-5.90 10^6/uL Hemoglobin 8.8 L 13.5-17.5 g/dL Hematocrit 25.5 #L 41.0-53.0 % Mean Corpuscular Volume 89.9 80.0-100.0 fL Mean Corpuscular Hemoglobin 31.0 28.0-32.0 pg Mean Corpuscular Hemoglobin Concent 34.5 32.0-36.0 g/dL Red Cell Distribution Width 20.0 H 11.8-14.3 % Platelet Count 147 140-450 10^3/uL Mean Platelet Volume 8.7 6.9-10.8 fL Neutrophils (%) (Auto) 37.0-80.0 % Lymphocytes (%) (Auto) 10.0-50.0 % Monocytes (%) (Auto) 0.0-12.0 % Basophils (%) (Auto) 0.0-2.0 % Neutrophils # (Auto) 1.6-8.6 10 ^3/uL Lymphocytes # (Auto) 0.4-5.4 10 ^3/uL Monocytes # (Auto) 0-1.3 10 ^3/uL Differential Total Cells Counted 100.0 100 Neutrophils % (Manual) 81 H 37.0-80.0 Band Neutrophils % (Manual) 0 Lymphocytes % (Manual) 12 10.0-50.0 Monocytes % (Manual) 5 0-12 Eosinophils % (Manual) 0 0-7 Basophils % (Manual) 0 0.0-2.0 Metamyelocytes % (manual) 0 Myelocytes % (Manual) 0 Promyelocytes % (Manual) 0 Blast Cells % (Manual) 0 Reactive Lymphocytes 2 Smudge Cells 1 /100 WBC Platelet Estimate Decreased Sodium Level 128 L 136-145 mmol/L Potassium Level 3.6 3.5-5.1 mmol/L Chloride Level 90 L 98-107 mmol/L Carbon Dioxide Level 27 20-31 mmol/L Anion Gap 11 5-15 Blood Urea Nitrogen 31 H 9-23 mg/dL Creatinine 3.94 H 0.700-1.30 mg/dL Glomerular Filtration Rate Calc 17 >90 mL/min BUN/Creatinine Ratio 7.9 L 10.0-20.0 Serum Glucose 73 L 74-106 mg/dL Calcium Level 9.0 8.7-10.4 mg/dL Total Bilirubin 33.1 H 0.2-1.0 mg/dL Aspartate Amino Transferase (AST) 244 H 13-40 U/L Alanine Aminotransferase (ALT) 126 H 7-40 U/L Alkaline Phosphatase 1352 H 46-116 U/L Total Protein 4.1 L 5.7-8.2 g/dL Albumin 2.8 L 3.2-4.8 g/dL Ammonia 47 H 11-32 umol/L Plasma/Serum Blood Alcohol < 3.0 <10 mg/dL Prothrombin Time 41.4 H 9.3-11.8 sec Prothrombin Time INR 4.54 *H 0.9-1.15 Activated Partial Thromboplast Time 61.6 H 24.5-34.5 SEC Troponin I High Sensitivity 28 </=54 ng/L Lactic Acid Level 2.0 0.4-2.0 mmol/L Test 11/05/24 18:08 11/05/24 17:10 11/05/24 17:01 Range/Units Eosinophils (%) (Auto) 0.4 0.0-7.0 % Eosinophils # (Auto) 0.1 0-0.8 10 ^3/uL Basophils # (Auto) 0.1 0-0.2 10 ^3/uL Nucleated Red Blood Cells 0.1 % B-Type Natriuretic Peptide 348.36 0-100 pg/mL Magnesium Level 2.1 1.6-2.6 mg/dL Lipase 25 12-53 U/L POC Glucose 73 70-106 mg/dl Assessment Acute kidney injury on intermittent hemodialysis Hepatocellular carcinoma Hypotension Edema to bilateral lower extremity Leukocytosis Coagulopathy Elevated liver enzymes Plan/Recommendation No indication for hemodialysis today as he is hemodynamically unstable. Discussed with patient and her son at bedside. Prognosis of this patient is poor. Plan discussed with: Patient, Son PATO CABRERA MD Nov 06, 2024 11:34
[2024-11-06] MEDS: MIDODRINE HCL 10 MG TAB PO SCH (12:36)
--- NOTE | 2024-11-06 14:55 | DVHSR ---
APPROVED REPORT EXAM: Two-dimensional and M-mode echocardiogram with Doppler and color Doppler. Blood Pressure: 95/60 mmHg INDICATION Rule out structural heart disease RISK FACTORS Height: 5'4", Weight: 169 DIMENSIONS LVDd4.7 (3.8-5.7cm)LA (2D)4.2 (1.9-4.0cm)Aortic Root3.7 (2.0-3.7cm) LVDs3.0 (2.5-4.0cm)LA (MM) (1.9-4.0cm)Aortic Cusp Exc1.8 (1.5-2.0cm) EF (%) 68.0 (55-70%)Rt. Atrium3.9 (1.9-4.0cm)Asc. Aorta cm IVSd0.9 (0.7-1.1cm)RV (D) (1.8-2.4cm) PWd0.8 (0.7-1.1cm) Mitral Valve MitralMitral Stenosis E wave0.75m/sMV Mean GR.mmHg A wave0.80m/sMV Peak GR.mmHg E/A ratio0.92D MVAcm2 DECEL [id number] 1/2 Timems Aortic Valve Aortic ValveAortic Stenosis V11.15m/Cassia Mean GR.4mmHg V21.32m/Cassia Peak GR.7mmHg LVOT Diameter2.1 (1.8-2.4cm)Doppler AVA3.02cm2 Tricuspid Valve TR Velocity2.38m/s [id number] Other Information Technically limited study due to body habitus. Conclusion Sinus rhythm. Left atrial enlargement. Valves are normal. Function is preserved at 60%. Normal RV function. Mild TR. No pericardial effusion masses or vegetations.
[2024-11-06] MEDS: HYDROcodone-ACET 5/325MG TAB PO PRN (17:53)
--- NOTE | 2024-11-06 18:00 | DVHPN2 ---
Assessment/Plan Assessment/Plan Subjective History of Present Illness Garcia Burns is a 54-year-old male with a history of liver cancer diagnosed 2 months ago, currently undergoing chemotherapy and on dialysis. He presented to the ED with hypotension after being directed there from a clinic visit. The patient is currently asymptomatic. He has been receiving dialysis through Friday, with his last session on . In the ED, he was started on oxygen, covered with vancomycin and Zosyn, and received 2 liters of IV fluids. He has produced minimal urine output and has been unable to provide a urine sample. The patient has temporal wasting, lower extremity edema up to the thigh, and ascites. His abdomen is distended but not tender. Mr. Burns has acute hypoxic respiratory failure, requiring 2 liters of oxygen to maintain a saturation of 93%. He does not have asterixis. Despite having hyperammonia of 47, there are no shelley signs of hepatic encephalopathy, and he reports no problems with bowel movements. The patient's prognosis is poor. Advanced care planning has been discussed, and he wishes to be DNR and DNI. However, he plans to continue his chemotherapy as an outpatient. Objective Vital Signs - Blood Pressure: 87/53 mmHg (MAP 64) - Respiratory Rate: 21 breaths per minute - Heart Rate: 95 bpm - Oxygen Saturation: 93% on 2 liters oxygen Physical Examination General: Alert and oriented x4. Temporal wasting noted. Respiratory: Clear breath sounds. Cardiovascular: No JVD observed. Abdomen: Distended, non-tender. Ascites present. Musculoskeletal: Lower extremity edema up to thigh. Neurological: No asterixis observed. Laboratory, Imaging, and Diagnostic Test Results - CBC: WBC 20 (elevated), Hemoglobin 9.9 g/dL - Electrolytes: Sodium 128 (low), Creatinine 3.94, BUN 30 - Liver Function Tests: AST 244, ALT 126, Alkaline Phosphatase 1352 - Glucose: Low (value not specified) - Ammonia: 47 - INR: 4.5 - CT Abdomen: Hepatomegaly with numerous liver masses, perihepatic ascites, diffuse anasarca, small bilateral pleural effusions - Chest X-ray: Bilateral patchy opacities and bilateral pleural effusions - Liver Ultrasound: Cholelithiasis and gallbladder sludge without sonographic evidence of acute cholecystitis, hepatomegaly, marked heterogeneous attenuation throughout the liver Assessment & Plan Assessment - Liver cancer - End-stage renal disease on hemodialysis - Hypotension - Acute hypoxic respiratory failure - Leukocytosis - Hyponatremia - Anemia - Coagulopathy - Ascites - Pleural effusion - Hepatomegaly - Cholecystitis with gallbladder sludge - Hyperammonemia Plan - Continue dialysis as scheduled - Continue oxygen therapy at 2 liters - Continue vancomycin and Zosyn - Continue IV fluid administration - Consult Renal for resumption of dialysis - Administer lactulose - Administer subcutaneous vitamin K - Hold DVT prophylaxis due to coagulopathy - Resume hepatic diet - Swab for COVID and influenza - Plan for paracentesis tomorrow if condition improves - Continue outpatient chemotherapy - Implement DNR and DNI status as per patient's wishes Diet: hepatic diet DVT PPX: holding DVT prophylaxis for coagulopathy GI PPX: Not indicated. Code Status: DNR, DNI Plan discussed with: Patient, Spouse My Orders Orders - RUPAL GARNER MD Procedure Category Date Status Time Code Status CODE 11/06/24 Transmitted 17:46 Covid19 Antigen Ly LAB 11/06/24 Logged Rapid Influenza A&B LAB 11/06/24 Logged 17:54 Comprehensive LAB 11/07/24 Verified Metabolic Panel 04:00 Lactic Acid W/ Reflex LAB 11/07/24 Verified Order 04:00 PTPTT LAB 11/07/24 Verified 04:00 Phosphorus LAB 11/07/24 Verified 04:00 Magnesium LAB 11/07/24 Verified 04:00 Date of Service: Nov 06, 2024 Billing Provider: RUPAL GARNER MD Common Visit Codes: [id number] INP/OBS CARE(HIGH) Secondary Visit Codes: [id number] CARE PLAN 30 MINUTES RUPAL GARNER MD Nov 06, 2024 18:00
--- NOTE | 2024-11-06 23:27 | DVHINCON2 ---
Date of service: Nov 06, [address] Juanito Hendrickson Reason for Consultation Liver failure History of Present Illness Garcia Burns is a 54-year-old male with past medical history of liver cancer diagnosed approximately 2 months ago, ESRD and on dialysis since 1 month came to the ED with chief complaints of feeling weak and hypotension which was 72/ 53 at clinic. Patient states that he has had jaundice since 1 month and is undergoing chemotherapy since 2 months. Patient denies any nausea, headaches, dizziness, dysuria, blood in the stool. Patient stated that he had 1 episode of vomiting which was nonbloody, green watery stools 4 days ago. Patient is on 1.5 L oxygen and does not use home oxygen. His last bowel movement was 4 days ago. Patient states that he has 15 lb weight loss since the last 2 months. Past surgical history: Denies Family history: Reviewed, noncontributory Lives with: Family PCP: Dr. Queen Past Medical History ESRD Liver cancer on chemo Past Surgical History Right hand fracture Family History: Patient reports no known family medical history. Social History Social history: Patient quit smoking 8 months ago, and patient's last alcohol drink was 4 months ago, denies any drug use Allergies: Coded Allergies: NO KNOWN ALLERGIES (Unverified , 11/05/24) Home Meds No Active Prescriptions or Reported Meds Current Medications Current Medications Medications (Trade) Dose Ordered Sig/Darryl Route PRN Reason Start Time Stop Time Status Last Admin Piperacillin Sod/ Tazobactam Sod 100 ml @ 25 mls/hr Q12HR IV 11/06/24 10:00 11/06/24 21:30 Vancomycin HCl 0 ml @ 0 mls/hr UD IV 11/06/24 00:30 Lactated Ringer's 1,000 ml @ 50 mls/hr Q20H IV 11/06/24 00:30 11/06/24 10:12 DC 11/06/24 05:24 Vancomycin HCl 250 ml @ 250 mls/hr Q1H IV 11/06/24 01:00 11/06/24 02:59 DC 11/06/24 02:41 Lactulose 30 ml BID PO 11/06/24 10:00 11/06/24 21:30 Midodrine (Proamatine Tablet) 10 mg TID@0600,1200,1800 PO 11/06/24 12:00 11/06/24 17:52 Vital Signs Vital Signs Date Time Temp Pulse Resp B/P (MAP) Pulse Ox O2 Delivery O2 Flow Rate FiO2 11/06/24 20:00 97.7 93 18 95/60 (72) 93 97.7 11/06/24 13:40 Nasal Cannula* 2 28 Physical Exam Physical Examination General: Alert and oriented x4. Temporal wasting noted. Respiratory: Clear breath sounds. Cardiovascular: No JVD observed. Abdomen: Distended, non-tender. Ascites present. Musculoskeletal: Lower extremity edema up to thigh. Neurological: No asterixis observed. Labs/Diagnostic Data Labs Test 11/06/24 04:25 11/06/24 01:17 11/05/24 19:55 11/05/24 19:31 Range/Units White Blood Count 20.0 H 4.4-10.8 10^3/uL Red Blood Count 2.84 L 4.5-5.90 10^6/uL Hemoglobin 8.8 L 13.5-17.5 g/dL Hematocrit 25.5 #L 41.0-53.0 % Mean Corpuscular Volume 89.9 80.0-100.0 fL Mean Corpuscular Hemoglobin 31.0 28.0-32.0 pg Mean Corpuscular Hemoglobin Concent 34.5 32.0-36.0 g/dL Red Cell Distribution Width 20.0 H 11.8-14.3 % Platelet Count 147 140-450 10^3/uL Mean Platelet Volume 8.7 6.9-10.8 fL Neutrophils (%) (Auto) 37.0-80.0 % Lymphocytes (%) (Auto) 10.0-50.0 % Monocytes (%) (Auto) 0.0-12.0 % Basophils (%) (Auto) 0.0-2.0 % Neutrophils # (Auto) 1.6-8.6 10 ^3/uL Lymphocytes # (Auto) 0.4-5.4 10 ^3/uL Monocytes # (Auto) 0-1.3 10 ^3/uL Differential Total Cells Counted 100.0 100 Neutrophils % (Manual) 81 H 37.0-80.0 Band Neutrophils % (Manual) 0 Lymphocytes % (Manual) 12 10.0-50.0 Monocytes % (Manual) 5 0-12 Eosinophils % (Manual) 0 0-7 Basophils % (Manual) 0 0.0-2.0 Metamyelocytes % (manual) 0 Myelocytes % (Manual) 0 Promyelocytes % (Manual) 0 Blast Cells % (Manual) 0 Reactive Lymphocytes 2 Smudge Cells 1 /100 WBC Platelet Estimate Decreased Sodium Level 128 L 136-145 mmol/L Potassium Level 3.6 3.5-5.1 mmol/L Chloride Level 90 L 98-107 mmol/L Carbon Dioxide Level 27 20-31 mmol/L Anion Gap 11 5-15 Blood Urea Nitrogen 31 H 9-23 mg/dL Creatinine 3.94 H 0.700-1.30 mg/dL Glomerular Filtration Rate Calc 17 >90 mL/min BUN/Creatinine Ratio 7.9 L 10.0-20.0 Serum Glucose 73 L 74-106 mg/dL Calcium Level 9.0 8.7-10.4 mg/dL Total Bilirubin 33.1 H 0.2-1.0 mg/dL Aspartate Amino Transferase (AST) 244 H 13-40 U/L Alanine Aminotransferase (ALT) 126 H 7-40 U/L Alkaline Phosphatase 1352 H 46-116 U/L Total Protein 4.1 L 5.7-8.2 g/dL Albumin 2.8 L 3.2-4.8 g/dL Ammonia 47 H 11-32 umol/L Plasma/Serum Blood Alcohol < 3.0 <10 mg/dL Prothrombin Time 41.4 H 9.3-11.8 sec Prothrombin Time INR 4.54 *H 0.9-1.15 Activated Partial Thromboplast Time 61.6 H 24.5-34.5 SEC Troponin I High Sensitivity 28 </=54 ng/L Lactic Acid Level 2.0 0.4-2.0 mmol/L Test 11/05/24 18:08 11/05/24 17:10 11/05/24 17:01 Range/Units Eosinophils (%) (Auto) 0.4 0.0-7.0 % Eosinophils # (Auto) 0.1 0-0.8 10 ^3/uL Basophils # (Auto) 0.1 0-0.2 10 ^3/uL Nucleated Red Blood Cells 0.1 % B-Type Natriuretic Peptide 348.36 0-100 pg/mL Magnesium Level 2.1 1.6-2.6 mg/dL Lipase 25 12-53 U/L POC Glucose 73 70-106 mg/dl Microbiology Date/Time Source Procedure Growth Status 11/06/24 06:25 Nose MRSA Screen - Final Complete CT SCAN ABD PELVIS IMPRESSION: Hepatomegaly with numerous liver masses. Small amount of ascites. Diffuse anasarca Gallbladder wall thickening, likely secondary to ascites. Evaluation of the abdominal organs is suboptimal in the absence of intravenous contrast. Small bilateral pleural effusions, [id number]. Liver USG IMPRESSION: 1. Hepatomegaly and marked heterogeneous attenuation throughout the liver. It is uncertain if this appearance is due to advanced cirrhosis and/or diffuse neoplastic infiltration. 2. Small bilateral pleural effusions. 3. Cholelithiasis and gallbladder sludge without other sonographic evidence of a cute cholecystitis. Problems(with codes): (1) End-stage renal disease on hemodialysis (2) Elevated LFTs (3) Chronic renal failure (4) Liver cancer (5) Jaundice Plan/Recommendation Plan Continue dialysis as scheduled Continue oxygen therapy at 2 liters Continue vancomycin and Zosyn Continue IV fluid administration Administer lactulose Administer subcutaneous vitamin K Hold DVT prophylaxis due to coagulopathy Resume hepatic diet Swab for COVID and influenza Plan for paracentesis tomorrow if condition improves Continue outpatient chemotherapy Implement DNR and DNI status as per patient's wishes Ptosis remains guarded Plan discussed with: Patient, Other (ER Nurse) ALEXUS AVITIA MD Nov 06, 2024 23:27
[2024-11-07] VITALS: BP 93/58; PULSE 99; RESP 18; O2SAT 99
[2024-11-07 03:00] VITALS: BP 98/67; PULSE 67; RESP 18; O2SAT 99
[2024-11-07 05:35] VITALS: BP 116/62; PULSE 57; RESP 16; TEMP 97.6; O2SAT 94
[2024-11-07 05:42] VITALS: BP 100/70; PULSE 88; RESP 16; TEMP 97.6; O2SAT 94
[2024-11-07 07:23] VITALS: PULSE 97; RESP 20; O2SAT 95
[2024-11-07 08:07] LABS: Hemoglobin 8.6 g/dL (13.5-17.5)
[2024-11-07 08:09] LABS: Hematocrit 25.2 % (41.0-53.0); Mean Corpuscular Hemoglobin 31.5 pg (28.0-32.0); Mean Corpuscular Volume 91.5 fL (80.0-100.0)
[2024-11-07 08:24] LABS: INR 1.43 (0.9-1.15); Partial Thromboplastin Time 42.3 SEC (24.5-34.5); Prothrombin Time 14.6 sec (9.3-11.8)
[2024-11-07 08:25] LABS: Potassium 3.7 mmol/L (3.5-5.1)
[2024-11-07 08:28] LABS: Total Cells Counted 100.0 (100)
[2024-11-07 08:29] LABS: Stomatocytes Few
[2024-11-07 08:55] LABS: Anion Gap 15 (5-15); BUN/Creatinine Ratio 8.0 (10.0-20.0)
[2024-11-07 08:57] LABS: Alanine Aminotransferase 128 U/L (7-40); Albumin 2.8 g/dL (3.2-4.8); Alkaline Phosphatase 1388 U/L (46-116); Bilirubin, Total > 35.0 mg/dL (0.2-1.0); Blood Urea Nitrogen 39 mg/dL (9-23); Calcium 9.2 mg/dL (8.7-10.4); Carbon Dioxide 25 mmol/L (20-31); Chloride 91 mmol/L (98-107); Glucose 71 mg/dL (74-106); Magnesium 2.1 mg/dL (1.6-2.6); Sodium 131 mmol/L (136-145); Total Protein 4.2 g/dL (5.7-8.2)
[2024-11-07 12:55] VITALS: RESP 15; O2SAT 97
--- NOTE | 2024-11-07 15:13 | DVHPN2 ---
Assessment/Plan Assessment/Plan Subjective History of Present Illness Garcia Burns is a 54-year-old male with a history of liver cancer diagnosed 2 months ago, currently undergoing chemotherapy and on dialysis. He presented to the ED with hypotension after being directed there from a clinic visit. The patient is currently asymptomatic. He has been receiving dialysis through Friday, with his last session on . In the ED, he was started on oxygen, covered with vancomycin and Zosyn, and received 2 liters of IV fluids. He has produced minimal urine output and has been unable to provide a urine sample. The patient has temporal wasting, lower extremity edema up to the thigh, and ascites. His abdomen is distended but not tender. Mr. Burns has acute hypoxic respiratory failure, requiring 2 liters of oxygen to maintain a saturation of 93%. He does not have asterixis. Despite having hyperammonia of 47, there are no shelley signs of hepatic encephalopathy, and he reports no problems with bowel movements. The patient's prognosis is poor. Advanced care planning has been discussed, and he wishes to be DNR and DNI. However, he plans to continue his chemotherapy as an outpatient. seen today, POCUS done, poor window for para. off pressors. pending HD per renal. pt also has a lump on back, POCUS showed soft tissue with L PLEF and jellyfish sign. INR 1.4 c/w abx coverage. pending culture. unable to do PARA to r/o SBP will treat empirically. transfer to telemetry Objective Vital Signs - Blood Pressure: 87/53 mmHg (MAP 64) - Respiratory Rate: 21 breaths per minute - Heart Rate: 95 bpm - Oxygen Saturation: 93% on 2 liters oxygen Physical Examination General: Alert and oriented x4. Temporal wasting noted. Respiratory: Clear breath sounds. Cardiovascular: No JVD observed. Abdomen: Distended, non-tender. Ascites present. Musculoskeletal: Lower extremity edema up to thigh. Neurological: No asterixis observed. Laboratory, Imaging, and Diagnostic Test Results - CBC: WBC 20 (elevated), Hemoglobin 9.9 g/dL - Electrolytes: Sodium 128 (low), Creatinine 3.94, BUN 30 - Liver Function Tests: AST 244, ALT 126, Alkaline Phosphatase 1352 - Glucose: Low (value not specified) - Ammonia: 47 - INR: 4.5 - CT Abdomen: Hepatomegaly with numerous liver masses, perihepatic ascites, diffuse anasarca, small bilateral pleural effusions - Chest X-ray: Bilateral patchy opacities and bilateral pleural effusions - Liver Ultrasound: Cholelithiasis and gallbladder sludge without sonographic evidence of acute cholecystitis, hepatomegaly, marked heterogeneous attenuation throughout the liver Assessment & Plan Assessment - Liver cancer - End-stage renal disease on hemodialysis - Hypotension - Acute hypoxic respiratory failure - Leukocytosis - Hyponatremia - Anemia - Coagulopathy - Ascites - Pleural effusion - Hepatomegaly - Cholecystitis with gallbladder sludge - Hyperammonemia Plan - Continue dialysis as scheduled - Continue oxygen therapy at 2 liters - Continue vancomycin and Zosyn - Continue IV fluid administration - Consult Renal for resumption of dialysis - Administer lactulose - Administer subcutaneous vitamin K - Hold DVT prophylaxis due to coagulopathy - Resume hepatic diet - Swab for COVID and influenza - Plan for paracentesis tomorrow if condition improves - poor pocket window, will defer para - Continue outpatient chemotherapy - Implement DNR and DNI status as per patient's wishes Diet: hepatic diet DVT PPX: holding DVT prophylaxis for coagulopathy GI PPX: Not indicated. Code Status: DNR, DNI Plan discussed with: Patient, Spouse My Orders Orders - RUPAL GARNER MD Procedure Category Date Status Time Code Status CODE 11/06/24 Transmitted 17:46 Covid19 Antigen Ly LAB 11/06/24 Logged Rapid Influenza A&B LAB 11/06/24 Logged 17:54 Transfer Orders XFER 11/07/24 Transmitted 13:01 Date of Service: Nov 07, 2024 Billing Provider: RUPAL GARNER MD Common Visit Codes: [id number] CARE 30-74 MIN RUPAL GARNER MD Nov 07, 2024 15:12
--- NOTE | 2024-11-07 15:47 | DVHPN2 ---
Progress Note - Dictate Date Seen: Nov 07, 2024 Medical Necessity Reason Pt with a Central, PICC or Fol: No Subjective Patient seen and examined at bedside. Son at bedside. Continues to be lethargic. vital signs Vital Sign Date Time Temp Pulse Resp B/P (MAP) Pulse Ox O2 Delivery O2 Flow Rate FiO2 11/07/24 15:00 77 12 85/58 (67) 98 11/07/24 12:55 Nasal Cannula* 2 28 11/07/24 12:55 98.1 98.1 Total Intake and Output 11/06/24 11/06/24 11/07/24 15:00 23:00 07:00 Intake Total 100 ml Balance 100 ml medications Current Medications Medications Dose Ordered Sig/Darryl Route Start Time Stop Time Status Last Admin Dose Admin Acetaminophen/ Hydrocodone Bitart 1 tab Q4HP PRN PO 11/05/24 20:45 11/07/24 09:20 1 TAB Morphine Sulfate 2 mg Q4HPRN PRN IV 11/05/24 20:45 Piperacillin Sod/ Tazobactam Sod 100 ml @ 25 mls/hr Q12HR IV 11/06/24 10:00 11/07/24 10:18 25 MLS/HR Vancomycin HCl 0 ml @ 0 mls/hr UD IV 11/06/24 00:30 Lactulose 30 ml BID PO 11/06/24 10:00 11/07/24 10:18 30 ML Midodrine 10 mg TID@0600,1200,1800 PO 11/06/24 12:00 11/07/24 13:02 10 MG objective Lethargic HEENT: Normocephalic , Icteric , mucosa dry Lungs : Diminished breath sounds at bases CVS : S1,S2 tachycardic Abd : Distended WET MACHINE TENDER : No focal deficits Extremities: 2+ edema laboratory and microbiology Laboratory Tests 11/07/24 07:29 Test 11/07/24 07:29 Range/Units Serum Glucose 71 L 74-106 mg/dL Problem List Acute kidney injury secondary to HR is on intermittent hemodialysis Hepatocellular carcinoma Hypotension Edema to bilateral lower extremity Leukocytosis Coagulopathy Elevated liver enzymes Assessment/Plan Continue with IV antibiotics. Blood pressure has been borderline. We will attempt to dialysis today with ultrafiltration of up to 500 mL. Albumin for blood pressure support. Overall prognosis of the patient is extremely poor. Patient currently is DNR and DNI. Consider palliative care evaluation. Dietary Evaluation Review Comments: 1) Initiate Nutrihep bid 2) Advance to renal hepatic 80g Pro diet when medically feasible 3) Follow-up with hepatology, oncology, and nephrology 4) Continue to monitor I&O, labs, and skin integrity Expected Outcomes/Goals: 1) appetite and labs to improve 2) diet to advance 3) f/u in 3-5 days Plan discussed with: PATO Rodriges MD Nov 07, 2024 15:47
[2024-11-07 18:14] LABS: COVID19 ANTIGEN SOFIA FIA NEGATIVE (NEGATIVE)
[2024-11-07] MEDS: SODIUM CHL 0.9% 1000 ML BAG XX ONE (19:45)
[2024-11-07] MEDS: ALBUMIN 25% 100 ML IV PRN (20:26)
--- NOTE | 2024-11-07 22:00 | DVHPN2 ---
Progress Note - Dictate Date Seen: Nov 07, 2024 Medical Necessity Reason Pt with a Central, PICC or Fol: No Subjective Patient seen at bedside ER bed 15 He continues to be lethargic and deeply jaundiced Family at bedside Patient had worsening leukocytosis and hyperbilirubinemia vital signs Vital Sign Date Time Temp Pulse Resp B/P (MAP) Pulse Ox O2 Delivery O2 Flow Rate FiO2 11/07/24 18:48 81 11/07/24 18:44 12 84/51 (62) 97 11/07/24 12:55 Nasal Cannula* 2 28 11/07/24 12:55 98.1 98.1 Total Intake and Output 11/06/24 11/06/24 11/07/24 15:00 23:00 07:00 Intake Total 100 ml Balance 100 ml medications Current Medications Medications Dose Ordered Sig/Darryl Route Start Time Stop Time Status Last Admin Dose Admin Acetaminophen/ Hydrocodone Bitart 1 tab Q4HP PRN PO 11/05/24 20:45 11/07/24 09:20 1 TAB Morphine Sulfate 2 mg Q4HPRN PRN IV 11/05/24 20:45 Piperacillin Sod/ Tazobactam Sod 100 ml @ 25 mls/hr Q12HR IV 11/06/24 10:00 11/07/24 10:18 25 MLS/HR Vancomycin HCl 0 ml @ 0 mls/hr UD IV 11/06/24 00:30 Lactulose 30 ml BID PO 11/06/24 10:00 11/07/24 10:18 30 ML Midodrine 10 mg TID@0600,1200,1800 PO 11/06/24 12:00 11/07/24 18:44 10 MG Albumin Human 100 ml @ 100 mls/hr Q1HR PRN IV 11/07/24 20:15 11/07/24 22:59 11/07/24 20:26 100 MLS/HR objective General: Alert and oriented x4. Temporal wasting noted. Scleral icterus Respiratory: Clear breath sounds. Cardiovascular: No JVD observed. Jaundice Abdomen: Distended, non-tender. Ascites present. Musculoskeletal: Lower extremity edema up to thigh. Neurological: No asterixis observed. laboratory and microbiology Laboratory Tests 11/07/24 07:29 Test 11/07/24 07:29 Range/Units Serum Glucose 71 L 74-106 mg/dL Problems(with codes): (1) Elevated LFTs (2) End-stage renal disease on hemodialysis (3) Chronic renal failure (4) Liver cancer (5) Leukocytosis (6) Jaundice (7) Hyperbilirubinemia Prognosis Plan Overall his prognosis is very poor Continue supportive care Patient is DNR DNI I recommend hospice evaluation if the family is agreeable Dietary Evaluation Review Comments: 1) Initiate Nutrihep bid 2) Advance to renal hepatic 80g Pro diet when medically feasible 3) Follow-up with hepatology, oncology, and nephrology 4) Continue to monitor I&O, labs, and skin integrity Expected Outcomes/Goals: 1) appetite and labs to improve 2) diet to advance 3) f/u in 3-5 days Plan discussed with: Patient, Other (ER Nurse) ALEXUS AVITIA MD Nov 07, 2024 22:00
[2024-11-08] VITALS (27 sets, daily range): BP systolic 85–103; BP diastolic 50–66; PULSE 89–115; RESP 9–30; TEMP 97.8–98.7; O2SAT 89–98
[2024-11-08 06:58] LABS: Potassium 3.7 mmol/L (3.5-5.1)
[2024-11-08 07:10] LABS: Hematocrit 22.8 % (41.0-53.0); Hemoglobin 7.8 g/dL (13.5-17.5); Mean Corpuscular Hemoglobin 31.8 pg (28.0-32.0)
[2024-11-08 07:12] LABS: Mean Corpuscular Volume 92.9 fL (80.0-100.0)
[2024-11-08 07:29] LABS: Anion Gap 15 (5-15); BUN/Creatinine Ratio 9.4 (10.0-20.0)
[2024-11-08 07:49] LABS: Blood Urea Nitrogen 35 mg/dL (9-23); Calcium 9.4 mg/dL (8.7-10.4); Carbon Dioxide 26 mmol/L (20-31); Chloride 94 mmol/L (98-107); Glucose 83 mg/dL (74-106); Sodium 135 mmol/L (136-145)
[2024-11-08 09:18] LABS: Total Cells Counted 100.0 (100)
--- NOTE | 2024-11-08 12:38 | DVHPN2 ---
Changes from previous H/P or p: No Changes Eyes: Other (Jaundice) ENT: No Ear pain, No Ear discharge, No Nose pain, No Nose discharge, No Nose congestion, No Mouth pain, No Mouth swelling, No Throat pain, No Throat swelling, No Other Cardiovascular: No Chest Pain, No Palpitations, No Orthopnea, No Paroxysmal Noc. Dyspnea, No Edema, No Lt Headedness, No Other Respiratory: No Cough, No Dry; Shortness of breath; No SOB with excertion, No Wheezing, No Hemoptysis, No Pleuritic Pain, No Sputum, No Other Gastrointestinal: No Nausea, No Vomiting, No Abdominal Pain, No Diarrhea, No Constipation, No Melena, No Hematochezia, No Other Genitourinary: No Dysuria, No Frequency, No Incontinence, No Hematuria, No Retention, No Other Musculoskeletal: No other, No neck pain, No shoulder pain, No arm pain, No back pain, No hand pain, No leg pain, No foot pain Skin: No Rash, No Lesions, No Jaundice, No Bruising, No Other Objective Vitals Vital Signs Date Time Temp Pulse Resp B/P (MAP) Pulse Ox O2 Delivery O2 Flow Rate FiO2 11/08/24 12:00 98.5 93 20 91/57 (68) 95 98.5 11/08/24 08:00 Nasal Cannula* 2 28 Intake/Output Intake and Output 11/08/24 07:00 Intake Total 220 ml Balance 220 ml Intake Oral 120 ml IV Total 100 ml # Bowel Movements 1 Medications Current Medications Medications Dose Ordered Sig/Darryl Route Start Time Stop Time Status Last Admin Dose Admin Acetaminophen/ Hydrocodone Bitart 1 tab Q4HP PRN PO 11/05/24 20:45 11/07/24 09:20 1 TAB Morphine Sulfate 2 mg Q4HPRN PRN IV 11/05/24 20:45 Piperacillin Sod/ Tazobactam Sod 100 ml @ 25 mls/hr Q12HR IV 11/06/24 10:00 11/08/24 09:24 25 MLS/HR Vancomycin HCl 0 ml @ 0 mls/hr UD IV 11/06/24 00:30 Lactulose 30 ml BID PO 11/06/24 10:00 11/08/24 09:24 30 ML Midodrine 10 mg TID@0600,1200,1800 PO 11/06/24 12:00 11/08/24 11:22 10 MG Laboratory Results Laboratory Tests 11/08/24 05:55 Chemistry Test 11/08/24 05:55 Calcium Level 9.4 mg/dL (8.7-10.4) Microbiology Microbiology Date/Time Source Procedure Growth Status 11/06/24 06:25 Nose MRSA Screen - Final Complete Labs and/or images reviewed: Labs reviewed by me, Image(s) reviewed by me Assessment/Plan Assessment/Plan Covering for Dr. Cameron - Liver cancer - End-stage renal disease on hemodialysis: Nephrology following - Hypotension - Acute hypoxic respiratory failure - Leukocytosis - Hyponatremia - Anemia - Coagulopathy - Ascites - Pleural effusion - Hepatomegaly - Cholecystitis with gallbladder sludge: Vancomycin Zosyn - Hyperammonemia Patient is DNR Critical care time 65 minutes Plan discussed with: Patient Date of Service: Nov 08, 2024 Billing Provider: IKE HUBBARD MD Common Visit Codes: [id number] CARE 30-74 MIN IKE HUBBARD MD Nov 08, 2024 12:38
[2024-11-08] MEDS: NOREPINEPHRINE 8 MG/250ML KIT 250 ML IV SCH (13:15)
[2024-11-08 14:17] LABS: Hepatitis A Total Antibody Positive (Negative); Hepatitis B Surface Antigen Negative (Negative); Hepatitis C Antibody Negative (Negative)
[2024-11-08] MEDS: ONDANSETRON HCL 4 MG/2 ML VIAL IV PRN (18:12)
--- NOTE | 2024-11-08 20:43 | DVHPN2 ---
Progress Note - Dictate Date Seen: Nov 08, 2024 Medical Necessity Reason Pt with a Central, PICC or Fol: No Subjective Patient seen at bedside FLORECITA [phone] ; More awake and responsive but deeply jaundiced Family at bedside Patient had worsening leukocytosis and hyperbilirubinemia vital signs Vital Sign Date Time Temp Pulse Resp B/P (MAP) Pulse Ox O2 Delivery O2 Flow Rate FiO2 11/08/24 20:15 93 12 96 11/08/24 20:00 97.9 98/61 (73) 97.9 11/08/24 08:00 Nasal Cannula* 2 28 Total Intake and Output 11/07/24 11/07/24 11/08/24 15:00 23:00 07:00 Intake Total 100 ml 120 ml Balance 100 ml 120 ml medications Current Medications Medications Dose Ordered Sig/Darryl Route Start Time Stop Time Status Last Admin Dose Admin Acetaminophen/ Hydrocodone Bitart 1 tab Q4HP PRN PO 11/05/24 20:45 11/07/24 09:20 1 TAB Morphine Sulfate 2 mg Q4HPRN PRN IV 11/05/24 20:45 Piperacillin Sod/ Tazobactam Sod 100 ml @ 25 mls/hr Q12HR IV 11/06/24 10:00 11/08/24 09:24 25 MLS/HR Vancomycin HCl 0 ml @ 0 mls/hr UD IV 11/06/24 00:30 Lactulose 30 ml BID PO 11/06/24 10:00 11/08/24 09:24 30 ML Midodrine 10 mg TID@0600,1200,1800 PO 11/06/24 12:00 11/08/24 17:39 10 MG Norepinephrine Bitartrate 250 ml @ 3.75 mls/hr Q24H IV 11/08/24 13:15 Ondansetron HCl 4 mg Q4HPRN PRN IV 11/08/24 14:30 11/08/24 18:12 4 MG objective General: Alert and oriented x4. Temporal wasting noted. Scleral icterus Respiratory: Clear breath sounds. Cardiovascular: No JVD observed. Jaundice Abdomen: Distended, non-tender. Ascites present. Musculoskeletal: Lower extremity edema up to thigh. Neurological: No asterixis observed. laboratory and microbiology Laboratory Tests 11/08/24 05:55 Test 11/08/24 05:55 Range/Units Serum Glucose 83 74-106 mg/dL Problems(with codes): (1) End-stage renal disease on hemodialysis (2) Chronic renal failure (3) Liver cancer (4) Leukocytosis (5) Jaundice (6) Hyperbilirubinemia Prognosis Plan Advance diet as tolerated Continue to monitor labs Overall his prognosis is poor and condition guarded Awaiting paracentesis Current coagulopathy Monitor labs including ammonia level and check CEA Patient is DNR DNI He likely is a hospice candidate; review treatment plan with oncologist Dietary Evaluation Review Comments: 1) Initiate Nutrihep bid 2) Advance to renal hepatic 80g Pro diet when medically feasible 3) Follow-up with hepatology, oncology, and nephrology 4) Continue to monitor I&O, labs, and skin integrity Expected Outcomes/Goals: 1) appetite and labs to improve 2) diet to advance 3) f/u in 3-5 days Plan discussed with: Patient, Other (Nurse) ALEXUS AVITIA MD Nov 08, 2024 20:43
--- NOTE | 2024-11-08 22:18 | DVHPN2 ---
Progress Note - Dictate Date Seen: Nov 08, 2024 Medical Necessity Reason Pt with a Central, PICC or Fol: No Subjective Patient seen and examined at bedside. Underwent HD yesterday . Hypotensive vital signs Vital Sign Date Time Temp Pulse Resp B/P (MAP) Pulse Ox O2 Delivery O2 Flow Rate FiO2 11/08/24 20:15 93 12 96 11/08/24 20:00 97.9 98/61 (73) 97.9 11/08/24 20:00 Nasal Cannula* 2 28 Total Intake and Output 11/07/24 11/07/24 11/08/24 15:00 23:00 07:00 Intake Total 100 ml 120 ml Balance 100 ml 120 ml medications Current Medications Medications Dose Ordered Sig/Darryl Route Start Time Stop Time Status Last Admin Dose Admin Acetaminophen/ Hydrocodone Bitart 1 tab Q4HP PRN PO 11/05/24 20:45 11/07/24 09:20 1 TAB Morphine Sulfate 2 mg Q4HPRN PRN IV 11/05/24 20:45 Piperacillin Sod/ Tazobactam Sod 100 ml @ 25 mls/hr Q12HR IV 11/06/24 10:00 11/08/24 22:00 25 MLS/HR Vancomycin HCl 0 ml @ 0 mls/hr UD IV 11/06/24 00:30 Lactulose 30 ml BID PO 11/06/24 10:00 11/08/24 09:24 30 ML Midodrine 10 mg TID@0600,1200,1800 PO 11/06/24 12:00 11/08/24 17:39 10 MG Norepinephrine Bitartrate 250 ml @ 3.75 mls/hr Q24H IV 11/08/24 13:15 Ondansetron HCl 4 mg Q4HPRN PRN IV 11/08/24 14:30 11/08/24 18:12 4 MG objective Awake and alert HEENT: Normocephalic , Icteric , mucosa dry Lungs : Diminished breath sounds at bases CVS : S1,S2 tachycardic Abd : Distended ADMITTING OFFICER : No focal deficits Extremities: 2+ edema laboratory and microbiology Laboratory Tests 11/08/24 05:55 Test 11/08/24 05:55 Range/Units Serum Glucose 83 74-106 mg/dL Problem List Acute kidney injury secondary to HRS on intermittent hemodialysis Hepatocellular carcinoma Hypotension Edema to bilateral lower extremity Leukocytosis Coagulopathy Elevated liver enzymes Assessment/Plan Continue with IV antibiotics. Blood pressure has been borderline. Dialysed on Friday with ultrafiltration of 500 mL. Next HD on Fri Overall prognosis of the patient is extremely poor. Patient currently is DNR and DNI. Consider palliative care evaluation. Discussed with Dietary Evaluation Review Comments: 1) Initiate Nutrihep bid 2) Advance to renal hepatic 80g Pro diet when medically feasible 3) Follow-up with hepatology, oncology, and nephrology 4) Continue to monitor I&O, labs, and skin integrity Expected Outcomes/Goals: 1) appetite and labs to improve 2) diet to advance 3) f/u in 3-5 days Plan discussed with: Spouse PATO CABRERA MD Nov 08, 2024 22:18
[2024-11-09] VITALS (27 sets, daily range): BP systolic 75–105; BP diastolic 41–67; PULSE 89–113; RESP 9–26; TEMP 97.9–98.6; O2SAT 92–100
[2024-11-09 05:45] LABS: Mean Corpuscular Hemoglobin 32.1 pg (28.0-32.0)
[2024-11-09 05:49] LABS: Hematocrit 21.5 % (41.0-53.0); Hemoglobin 7.3 g/dL (13.5-17.5); Mean Corpuscular Volume 94.6 fL (80.0-100.0)
[2024-11-09 05:57] LABS: Calcium 9.4 mg/dL (8.7-10.4); Potassium 3.8 mmol/L (3.5-5.1)
[2024-11-09 05:58] LABS: Bilirubin, Total > 35.0 mg/dL (0.2-1.0); Chloride 92 mmol/L (98-107); Sodium 132 mmol/L (136-145)
[2024-11-09 06:06] LABS: INR 1.25 (0.9-1.15); Prothrombin Time 13.0 sec (9.3-11.8)
[2024-11-09 06:12] LABS: Alkaline Phosphatase 1349 U/L (46-116)
[2024-11-09 06:13] LABS: Anion Gap 17 (5-15); BUN/Creatinine Ratio 11.9 (10.0-20.0); Blood Urea Nitrogen 53 mg/dL (9-23); Carbon Dioxide 23 mmol/L (20-31); Glucose 89 mg/dL (74-106)
[2024-11-09 06:14] LABS: Alanine Aminotransferase 126 U/L (7-40); Albumin 2.7 g/dL (3.2-4.8); Total Protein 4.0 g/dL (5.7-8.2)
[2024-11-09 06:32] LABS: Anisocytosis Slight; Total Cells Counted 100.0 (100)
--- NOTE | 2024-11-09 15:04 | DVHPN2 ---
Progress Note - Dictate Date Seen: Nov 09, 2024 Medical Necessity Reason Pt with a Central, PICC or Fol: No Subjective Patient seen at bedside FLORECITA [phone] ; More awake and responsive but deeply jaundiced Patient had worsening leukocytosis and hyperbilirubinemia Ultrasound did not show enough fluid for paracentesis vital signs Vital Sign Date Time Temp Pulse Resp B/P (MAP) Pulse Ox O2 Delivery O2 Flow Rate FiO2 11/09/24 14:00 97.9 96 14 100/61 (74) 94 97.9 11/09/24 08:00 Nasal Cannula* 2 28 Total Intake and Output 11/08/24 11/08/24 11/09/24 15:00 23:00 07:00 Intake Total 540 ml 440 ml 150 ml Balance 540 ml 440 ml 150 ml medications Current Medications Medications Dose Ordered Sig/Darryl Route Start Time Stop Time Status Last Admin Dose Admin Acetaminophen/ Hydrocodone Bitart 1 tab Q4HP PRN PO 11/05/24 20:45 11/09/24 14:14 1 TAB Morphine Sulfate 2 mg Q4HPRN PRN IV 11/05/24 20:45 Piperacillin Sod/ Tazobactam Sod 100 ml @ 25 mls/hr Q12HR IV 11/06/24 10:00 11/09/24 10:19 25 MLS/HR Vancomycin HCl 0 ml @ 0 mls/hr UD IV 11/06/24 00:30 Lactulose 30 ml BID PO 11/06/24 10:00 11/08/24 22:00 30 ML Midodrine 10 mg TID@0600,1200,1800 PO 11/06/24 12:00 11/09/24 10:51 10 MG Norepinephrine Bitartrate 250 ml @ 3.75 mls/hr Q24H IV 11/08/24 13:15 Ondansetron HCl 4 mg Q4HPRN PRN IV 11/08/24 14:30 11/09/24 10:51 4 MG objective General: Alert and oriented x4. Temporal wasting noted. Scleral icterus Respiratory: Clear breath sounds. Cardiovascular: No JVD observed. Jaundice Abdomen: Distended, non-tender. Ascites present. Musculoskeletal: Lower extremity edema up to thigh. Neurological: No asterixis observed. laboratory and microbiology Laboratory Tests 11/09/24 05:02 Test 11/09/24 05:02 Range/Units Serum Glucose 89 74-106 mg/dL Problems(with codes): (1) End-stage renal disease on hemodialysis (2) Elevated LFTs (3) Hypotension (4) Chronic renal failure (5) Liver cancer (6) Leukocytosis (7) Jaundice (8) Hyperbilirubinemia Prognosis Plan Advance diet as tolerated Continue to monitor labs Overall his prognosis is poor and condition guarded Current coagulopathy Monitor labs including ammonia level and check CEA Patient is DNR DNI He likely is a hospice candidate; review treatment plan with oncologist Dietary Evaluation Review Comments: 1) Initiate Nutrihep bid 2) Advance to renal hepatic 80g Pro diet when medically feasible 3) Follow-up with hepatology, oncology, and nephrology 4) Continue to monitor I&O, labs, and skin integrity Expected Outcomes/Goals: 1) appetite and labs to improve 2) diet to advance 3) f/u in 3-5 days Plan discussed with: Patient ALEXUS AVITIA MD Nov 09, 2024 15:04
--- NOTE | 2024-11-09 15:14 | DVH ---
Technique: Real-time ultrasound imaging of the abdomen was performed with grayscale imaging. Indication: fluid check for diagnostic para Comparison: US LIVER on DOS: 11/06/24, US ABDOMEN STORAGE OF OUTSIDE FILMS on DOS: 09/21/24 Findings: Trace abdominal ascites fluid Impression: As above
[2024-11-09] MEDS: MORPHINE SULFATE INJ 2 MG/ml SYRG IV PRN (16:36)
[2024-11-09] MEDS: ONDANSETRON HCL 4 MG/2 ML VIAL IV PRN (16:36)
--- NOTE | 2024-11-09 17:11 | DVHPN2 ---
Progress Note - Dictate Date Seen: Nov 09, 2024 Medical Necessity Reason Pt with a Central, PICC or Fol: No Subjective Patient seen and examined at bedside. Hypotensive vital signs Vital Sign Date Time Temp Pulse Resp B/P (MAP) Pulse Ox O2 Delivery O2 Flow Rate FiO2 11/09/24 16:36 100 36 92/57 11/09/24 14:00 97.9 94 97.9 11/09/24 08:00 Nasal Cannula* 2 28 Total Intake and Output 11/08/24 11/08/24 11/09/24 15:00 23:00 07:00 Intake Total 540 ml 440 ml 150 ml Balance 540 ml 440 ml 150 ml medications Current Medications Medications Dose Ordered Sig/Darryl Route Start Time Stop Time Status Last Admin Dose Admin Acetaminophen/ Hydrocodone Bitart 1 tab Q4HP PRN PO 11/05/24 20:45 11/09/24 14:14 1 TAB Morphine Sulfate 2 mg Q4HPRN PRN IV 11/05/24 20:45 11/09/24 16:36 2 MG Piperacillin Sod/ Tazobactam Sod 100 ml @ 25 mls/hr Q12HR IV 11/06/24 10:00 11/09/24 10:19 25 MLS/HR Vancomycin HCl 0 ml @ 0 mls/hr UD IV 11/06/24 00:30 Lactulose 30 ml BID PO 11/06/24 10:00 11/08/24 22:00 30 ML Midodrine 10 mg TID@0600,1200,1800 PO 11/06/24 12:00 11/09/24 17:00 10 MG Norepinephrine Bitartrate 250 ml @ 3.75 mls/hr Q24H IV 11/08/24 13:15 Ondansetron HCl 8 mg Q4HPRN PRN IV 11/09/24 16:15 11/09/24 16:36 8 MG Acetylcysteine 100 mg Q6HR NEB 11/09/24 18:00 Albuterol 2.5 mg Q6HR NEB 11/09/24 18:00 UNV objective lethargic HEENT: Normocephalic , Icteric , mucosa dry Lungs : Diminished breath sounds at bases CVS : S1,S2 tachycardic Abd : Distended LEGAL WORD PROCESSOR : No focal deficits Extremities: 2+ edema laboratory and microbiology Laboratory Tests 11/09/24 05:02 Test 11/09/24 05:02 Range/Units Serum Glucose 89 74-106 mg/dL Problem List Acute kidney injury secondary to HRS on intermittent hemodialysis Hepatocellular carcinoma Hypotension Edema to bilateral lower extremity Leukocytosis Coagulopathy Elevated liver enzymes Assessment/Plan Continue with IV antibiotics. Blood pressure has been borderline. Dialysed on Friday with ultrafiltration of 500 mL. Next HD on Fri Overall prognosis of the patient is extremely poor. Patient currently is DNR and DNI. Consider palliative care evaluation. Dietary Evaluation Review Comments: 1) Initiate Nutrihep bid 2) Advance to renal hepatic 80g Pro diet when medically feasible 3) Follow-up with hepatology, oncology, and nephrology 4) Continue to monitor I&O, labs, and skin integrity Expected Outcomes/Goals: 1) appetite and labs to improve 2) diet to advance 3) f/u in 3-5 days Plan discussed with: PATO Mott MD Nov 09, 2024 17:11
--- NOTE | 2024-11-09 18:17 | DVHPN2 ---
Assessment/Plan Assessment/Plan Subjective History of Present Illness Garcia Burns is a 54-year-old male with a history of liver cancer diagnosed 2 months ago, currently undergoing chemotherapy and on dialysis. He presented to the ED with hypotension after being directed there from a clinic visit. The patient is currently asymptomatic. He has been receiving dialysis through Friday, with his last session on . In the ED, he was started on oxygen, covered with vancomycin and Zosyn, and received 2 liters of IV fluids. He has produced minimal urine output and has been unable to provide a urine sample. The patient has temporal wasting, lower extremity edema up to the thigh, and ascites. His abdomen is distended but not tender. Mr. Burns has acute hypoxic respiratory failure, requiring 2 liters of oxygen to maintain a saturation of 93%. He does not have asterixis. Despite having hyperammonia of 47, there are no shelley signs of hepatic encephalopathy, and he reports no problems with bowel movements. The patient's prognosis is poor. Advanced care planning has been discussed, and he wishes to be DNR and DNI. However, he plans to continue his chemotherapy as an outpatient. POCUS done, poor window for para. off pressors. pending HD per renal. pt also has a lump on back, POCUS showed soft tissue with L PLEF and jellyfish sign. INR 1.4 c/w abx coverage. pending culture. unable to do PARA to r/o SBP will treat empirically. transfer to telemetry seen today, BP stable, no window for para, leukocytosis worsening, no shelley focus of infection, empirically covering for SBP PNA UTI Objective Vital Signs - Blood Pressure: 87/53 mmHg (MAP 64) - Respiratory Rate: 21 breaths per minute - Heart Rate: 95 bpm - Oxygen Saturation: 93% on 2 liters oxygen Physical Examination General: Alert and oriented x4. Temporal wasting noted. Respiratory: Clear breath sounds. Cardiovascular: No JVD observed. Abdomen: Distended, non-tender. Ascites present. Musculoskeletal: Lower extremity edema up to thigh. Neurological: No asterixis observed. Laboratory, Imaging, and Diagnostic Test Results - CBC: WBC 20 (elevated), Hemoglobin 9.9 g/dL - Electrolytes: Sodium 128 (low), Creatinine 3.94, BUN 30 - Liver Function Tests: AST 244, ALT 126, Alkaline Phosphatase 1352 Bili >35 - Glucose: Low (value not specified) - Ammonia: 47 - INR: 4.5 - CT Abdomen: Hepatomegaly with numerous liver masses, perihepatic ascites, diffuse anasarca, small bilateral pleural effusions - Chest X-ray: Bilateral patchy opacities and bilateral pleural effusions - Liver Ultrasound: Cholelithiasis and gallbladder sludge without sonographic evidence of acute cholecystitis, hepatomegaly, marked heterogeneous attenuation throughout the liver Assessment & Plan Assessment - Liver cancer - End-stage renal disease on hemodialysis - Hypotension - Acute hypoxic respiratory failure - Leukocytosis - Hyponatremia - Anemia - Coagulopathy - Ascites - Pleural effusion - Hepatomegaly - Cholecystitis with gallbladder sludge - Hyperammonemia Plan - Continue dialysis as scheduled - Continue oxygen therapy at 2 liters - Continue vancomycin and Zosyn - Continue IV fluid administration - Consult Renal for resumption of dialysis - Administer lactulose - Administer subcutaneous vitamin K - Hold DVT prophylaxis due to coagulopathy - Resume hepatic diet - Swab for COVID and influenza - Plan for paracentesis tomorrow if condition improves - poor pocket window, will defer para - Continue outpatient chemotherapy - Implement DNR and DNI status as per patient's wishes Diet: hepatic diet DVT PPX: holding DVT prophylaxis for coagulopathy GI PPX: Not indicated. Code Status: DNR, DNI Plan discussed with: Patient My Orders Orders - RUPAL GARNER MD Procedure Category Date Status Time Ondansetron Hcl PHA 11/09/24 In Process (Zofran) 16:15 Acetylcysteine PHA 11/09/24 In Process Inhalation 10% 18:00 Albuterol Medneb PHA 11/09/24 In Process (Ventolin Medneb) 18:00 Date of Service: Nov 09, 2024 Billing Provider: RUPAL GARNER MD Common Visit Codes: 76408-POG/OBS SAME DATE (MOD), [id number] CARE 30-74 MIN RUPAL GARNER MD Nov 09, 2024 18:17
[2024-11-09] MEDS: ALBUTEROL SULF 2.5 MG/0.5ML(0.5%) NEB SOLN NEB SCH (19:37)
[2024-11-09] MEDS: ACETYLCYSTEINE 10 %(100MG/ML) SOL 4ML NEB SCH (19:38)
[2024-11-10] VITALS (36 sets, daily range): BP systolic 84–129; BP diastolic 45–94; PULSE 90–109; RESP 8–26; TEMP 96.9–99.2; O2SAT 89–100
[2024-11-10 05:56] LABS: Hematocrit 19.0 % (41.0-53.0); Mean Corpuscular Hemoglobin 31.9 pg (28.0-32.0); Mean Corpuscular Volume 97.9 fL (80.0-100.0)
[2024-11-10 06:07] LABS: Hemoglobin 6.2 g/dL (13.5-17.5)
[2024-11-10 06:24] LABS: Calcium 9.5 mg/dL (8.7-10.4); Potassium 4.9 mmol/L (3.5-5.1)
[2024-11-10 07:04] LABS: Total Cells Counted 100.0 (100)
[2024-11-10 07:05] LABS: Anisocytosis Slight
[2024-11-10 07:09] LABS: Chloride 91 mmol/L (98-107); Sodium 131 mmol/L (136-145)
[2024-11-10 07:59] LABS: Anion Gap 25 (5-15); BUN/Creatinine Ratio 14.2 (10.0-20.0)
[2024-11-10 08:00] LABS: Blood Urea Nitrogen 77 mg/dL (9-23); Carbon Dioxide 15 mmol/L (20-31); Glucose 74 mg/dL (74-106)
[2024-11-10 08:01] LABS: Alanine Aminotransferase 143 U/L (7-40); Albumin 2.7 g/dL (3.2-4.8); Alkaline Phosphatase 1349 U/L (46-116); Bilirubin, Total 33.0 mg/dL (0.2-1.0); Total Protein 3.9 g/dL (5.7-8.2)
--- NOTE | 2024-11-10 13:53 | DVHPN2 ---
Progress Note - Dictate Date Seen: Nov 10, 2024 Medical Necessity Reason Pt with a Central, PICC or Fol: No Subjective Patient seen at bedside FLORECITA 244 7 ; Branden be can lethargic Leukocytosis is worsening with the acute leukemoid reaction white count 62 K Hemoglobin dropped down to 6.3 and stools were Hemoccult positive. No active GI bleeding reported by the nurse Patient is getting transfused 1 unit PRBC vital signs Vital Sign Date Time Temp Pulse Resp B/P (MAP) Pulse Ox O2 Delivery O2 Flow Rate FiO2 11/10/24 13:47 97.1 96 12 129/61 97.1 11/10/24 12:00 93 Nasal Cannula* 2 28 Total Intake and Output 11/09/24 11/09/24 11/10/24 15:00 23:00 07:00 Intake Total 200 ml 100 ml 150 ml Balance 200 ml 100 ml 150 ml medications Current Medications Medications Dose Ordered Sig/Darryl Route Start Time Stop Time Status Last Admin Dose Admin Acetaminophen/ Hydrocodone Bitart 1 tab Q4HP PRN PO 11/05/24 20:45 11/10/24 04:13 1 TAB Morphine Sulfate 2 mg Q4HPRN PRN IV 11/05/24 20:45 11/09/24 16:36 2 MG Piperacillin Sod/ Tazobactam Sod 100 ml @ 25 mls/hr Q12HR IV 11/06/24 10:00 11/10/24 09:40 25 MLS/HR Vancomycin HCl 0 ml @ 0 mls/hr UD IV 11/06/24 00:30 Lactulose 30 ml BID PO 11/06/24 10:00 11/10/24 09:40 30 ML Midodrine 10 mg TID@0600,1200,1800 PO 11/06/24 12:00 11/10/24 12:26 10 MG Norepinephrine Bitartrate 250 ml @ 3.75 mls/hr Q24H IV 11/08/24 13:15 Ondansetron HCl 8 mg Q4HPRN PRN IV 11/09/24 16:15 11/10/24 03:43 8 MG Acetylcysteine 100 mg Q6HR NEB 11/09/24 18:00 11/10/24 11:21 100 MG Albuterol 2.5 mg Q6HR NEB 11/09/24 18:00 11/10/24 11:20 2.5 MG objective General: Alert and oriented x4. Temporal wasting noted. Scleral icterus Respiratory: Clear breath sounds. Cardiovascular: No JVD observed. Jaundice Abdomen: Distended, non-tender. Ascites present. Musculoskeletal: Lower extremity edema up to thigh. Neurological: No asterixis observed. laboratory and microbiology Laboratory Tests 11/10/24 05:31 Test 11/10/24 05:31 Range/Units Serum Glucose 74 74-106 mg/dL Problems(with codes): (1) End-stage renal disease on hemodialysis (2) Elevated LFTs (3) Chronic renal failure (4) Liver cancer (5) Jaundice (6) Leukocytosis (7) Hyperbilirubinemia Prognosis Plan Apparently the patient discussed with the oncologist at [facility] along with the hospitalist He is not deemed to be a candidate for any further chemotherapy treatment at this time Discuss with hospitalist considering hospice consultation Transfuse 1 unit PRBC, monitor labs; patient is not a candidate for an endoscopy at this time I will be out of town for the weekend If any further GI intervention is acutely required please contact GI physician on-call Dietary Evaluation Review Comments: 1) Initiate Nutrihep bid 2) Advance to renal hepatic 80g Pro diet when medically feasible 3) Follow-up with hepatology, oncology, and nephrology 4) Continue to monitor I&O, labs, and skin integrity Expected Outcomes/Goals: 1) appetite and labs to improve 2) diet to advance 3) f/u in 3-5 days Plan discussed with: Patient, Spouse CC Plasma Assessment Blood Product Administration S: [id number] ALEXUS AVITIA MD Nov 10, 2024 13:52
[2024-11-10] MEDS: SODIUM CHL 0.9% 1000 ML BAG XX ONE (14:30)
--- NOTE | 2024-11-10 15:15 | DVHPN2 ---
Progress Note - Dictate Date Seen: Nov 10, 2024 Medical Necessity Reason Pt with a Central, PICC or Fol: No Subjective Patient seen and examined at bedside. lethargic . Scheduled for HD today vital signs Vital Sign Date Time Temp Pulse Resp B/P (MAP) Pulse Ox O2 Delivery O2 Flow Rate FiO2 11/10/24 14:00 95 10 113/55 (74) 93 11/10/24 13:47 97.1 97.1 11/10/24 12:00 Nasal Cannula* 2 28 Total Intake and Output 11/09/24 11/09/24 11/10/24 15:00 23:00 07:00 Intake Total 200 ml 100 ml 150 ml Balance 200 ml 100 ml 150 ml medications Current Medications Medications Dose Ordered Sig/Darryl Route Start Time Stop Time Status Last Admin Dose Admin Acetaminophen/ Hydrocodone Bitart 1 tab Q4HP PRN PO 11/05/24 20:45 11/10/24 04:13 1 TAB Morphine Sulfate 2 mg Q4HPRN PRN IV 11/05/24 20:45 11/09/24 16:36 2 MG Piperacillin Sod/ Tazobactam Sod 100 ml @ 25 mls/hr Q12HR IV 11/06/24 10:00 11/10/24 09:40 25 MLS/HR Vancomycin HCl 0 ml @ 0 mls/hr UD IV 11/06/24 00:30 Lactulose 30 ml BID PO 11/06/24 10:00 11/10/24 09:40 30 ML Midodrine 10 mg TID@0600,1200,1800 PO 11/06/24 12:00 11/10/24 12:26 10 MG Norepinephrine Bitartrate 250 ml @ 3.75 mls/hr Q24H IV 11/08/24 13:15 Ondansetron HCl 8 mg Q4HPRN PRN IV 11/09/24 16:15 11/10/24 03:43 8 MG Acetylcysteine 100 mg Q6HR NEB 11/09/24 18:00 11/10/24 11:21 100 MG Albuterol 2.5 mg Q6HR NEB 11/09/24 18:00 11/10/24 11:20 2.5 MG objective lethargic HEENT: Normocephalic , Icteric , mucosa dry Lungs : Diminished breath sounds at bases CVS : S1,S2 tachycardic Abd : Distended SENIOR MEDICAL TECHNOLOGIST : No focal deficits Extremities: 2+ edema laboratory and microbiology Laboratory Tests 11/10/24 05:31 Test 11/10/24 05:31 Range/Units Serum Glucose 74 74-106 mg/dL Problem List Acute kidney injury secondary to HRS on intermittent hemodialysis Hepatocellular carcinoma Hypotension Edema to bilateral lower extremity Leukocytosis Coagulopathy Elevated liver enzymes Assessment/Plan Continue with IV antibiotics. Blood pressure has been borderline. Dialysed on Friday with ultrafiltration of 500 mL. Overall prognosis of the patient is extremely poor. Patient currently is DNR and DNI. Transfused 1 unit PRBC Dietary Evaluation Review Comments: 1) Initiate Nutrihep bid 2) Advance to renal hepatic 80g Pro diet when medically feasible 3) Follow-up with hepatology, oncology, and nephrology 4) Continue to monitor I&O, labs, and skin integrity Expected Outcomes/Goals: 1) appetite and labs to improve 2) diet to advance 3) f/u in 3-5 days Plan discussed with: Other CC Plasma Assessment Blood Product Administration S: [id number] PATO CABRERA MD Nov 10, 2024 15:15
--- NOTE | 2024-11-10 15:51 | DVHPN2 ---
Assessment/Plan Assessment/Plan Subjective History of Present Illness Garcia Burns is a 54-year-old male with a history of liver cancer diagnosed 2 months ago, currently undergoing chemotherapy and on dialysis. He presented to the ED with hypotension after being directed there from a clinic visit. The patient is currently asymptomatic. He has been receiving dialysis through Friday, with his last session on . In the ED, he was started on oxygen, covered with vancomycin and Zosyn, and received 2 liters of IV fluids. He has produced minimal urine output and has been unable to provide a urine sample. The patient has temporal wasting, lower extremity edema up to the thigh, and ascites. His abdomen is distended but not tender. Mr. Burns has acute hypoxic respiratory failure, requiring 2 liters of oxygen to maintain a saturation of 93%. He does not have asterixis. Despite having hyperammonia of 47, there are no hselley signs of hepatic encephalopathy, and he reports no problems with bowel movements. The patient's prognosis is poor. Advanced care planning has been discussed, and he wishes to be DNR and DNI. However, he plans to continue his chemotherapy as an outpatient. POCUS done, poor window for para. off pressors. pending HD per renal. pt also has a lump on back, POCUS showed soft tissue with L PLEF and jellyfish sign. INR 1.4 c/w abx coverage. pending culture. unable to do PARA to r/o SBP will treat empirically. transfer to telemetry seen today,discussed with oncologist dr grey on senatobia, patient had prior hx of leukemoid reaction. patient received carboplatin and etoposide for palliative chemo. had discussion with regarding current onco treatment. patient agrees for hospice. ss consult placed. if vitals still stable will dc tomorrow and stop abx Objective Vital Signs - Blood Pressure: 87/53 mmHg (MAP 64) - Respiratory Rate: 21 breaths per minute - Heart Rate: 95 bpm - Oxygen Saturation: 93% on 2 liters oxygen Physical Examination General: Alert and oriented x4. Temporal wasting noted. Respiratory: Clear breath sounds. Cardiovascular: No JVD observed. Abdomen: Distended, non-tender. Ascites present. Musculoskeletal: Lower extremity edema up to thigh. Neurological: No asterixis observed. Laboratory, Imaging, and Diagnostic Test Results - CBC: WBC 20 (elevated), Hemoglobin 9.9 g/dL - Electrolytes: Sodium 128 (low), Creatinine 3.94, BUN 30 - Liver Function Tests: AST 244, ALT 126, Alkaline Phosphatase 1352 Bili >35 - Glucose: Low (value not specified) - Ammonia: 47 - INR: 4.5 - CT Abdomen: Hepatomegaly with numerous liver masses, perihepatic ascites, diffuse anasarca, small bilateral pleural effusions - Chest X-ray: Bilateral patchy opacities and bilateral pleural effusions - Liver Ultrasound: Cholelithiasis and gallbladder sludge without sonographic evidence of acute cholecystitis, hepatomegaly, marked heterogeneous attenuation throughout the liver Assessment & Plan Assessment - Liver cancer - End-stage renal disease on hemodialysis - Hypotension - Acute hypoxic respiratory failure - Leukocytosis - Hyponatremia - Anemia - Coagulopathy - Ascites - Pleural effusion - Hepatomegaly - Cholecystitis with gallbladder sludge - Hyperammonemia Plan - Continue dialysis as scheduled - Continue oxygen therapy at 2 liters - Continue vancomycin and Zosyn - Continue IV fluid administration - Consult Renal for resumption of dialysis - Administer lactulose - Administer subcutaneous vitamin K - Hold DVT prophylaxis due to coagulopathy - Resume hepatic diet - Swab for COVID and influenza - Plan for paracentesis tomorrow if condition improves - poor pocket window, will defer para - Continue outpatient chemotherapy - Implement DNR and DNI status as per patient's wishes Diet: hepatic diet DVT PPX: holding DVT prophylaxis for coagulopathy GI PPX: Not indicated. Code Status: DNR, DNI 30 minutes spent advance goals of care Plan discussed with: Patient, Spouse My Orders Orders - RUPAL GARNER MD Procedure Category Date Status Time Ondansetron Hcl PHA 11/09/24 In Process (Zofran) 16:15 Acetylcysteine PHA 11/09/24 In Process Inhalation 10% 18:00 Albuterol Medneb PHA 11/09/24 In Process (Ventolin Medneb) 18:00 * Ingot Stripper CONS 11/10/24 Transmitted Consult Date of Service: Nov 10, 2024 Billing Provider: RUPAL GARNER MD Common Visit Codes: [id number] INP/OBS CARE(HIGH) Secondary Visit Codes: [id number] CARE PLAN 30 MINUTES RUPAL GARNER MD Nov 10, 2024 15:51
[2024-11-10] MEDS: VANCOMYCIN 500mg/100mL 100 ML IV ONE (18:31)
[2024-11-10 22:17] LABS: Hematocrit 22.9 % (41.0-53.0); Hemoglobin 7.5 g/dL (13.5-17.5)
[2024-11-11] VITALS (34 sets, daily range): BP systolic 95–157; BP diastolic 47–79; PULSE 66–110; RESP 11–25; TEMP 97–99; O2SAT 91–100
[2024-11-11 06:21] LABS: Hematocrit 20.5 % (41.0-53.0)
[2024-11-11 06:26] LABS: Mean Corpuscular Hemoglobin 31.1 pg (28.0-32.0); Mean Corpuscular Volume 94.4 fL (80.0-100.0)
[2024-11-11 06:28] LABS: Potassium 4.1 mmol/L (3.5-5.1); Sodium 137 mmol/L (136-145)
[2024-11-11 06:29] LABS: Hemoglobin 6.8 g/dL (13.5-17.5)
[2024-11-11 06:30] LABS: Calcium 9.0 mg/dL (8.7-10.4)
[2024-11-11 06:31] LABS: Chloride 95 mmol/L (98-107)
[2024-11-11 06:35] LABS: Anion Gap 18 (5-15); BUN/Creatinine Ratio 13.5 (10.0-20.0)
[2024-11-11 06:36] LABS: Blood Urea Nitrogen 54 mg/dL (9-23); Carbon Dioxide 24 mmol/L (20-31); Glucose 91 mg/dL (74-106)
[2024-11-11 07:01] LABS: Total Cells Counted 100.0 (100)
[2024-11-11 12:55] LABS: Hematocrit 24.6 % (41.0-53.0); Hemoglobin 8.0 g/dL (13.5-17.5); Mean Corpuscular Hemoglobin 31.1 pg (28.0-32.0); Mean Corpuscular Volume 96.1 fL (80.0-100.0)
[2024-11-11] MEDS ORDERED: MID10T PO (12:57)
[2024-11-11] MEDS ORDERED: LACT10SO3 PO (12:57)
[2024-11-11] MEDS ORDERED: HYDR-4902 PO (12:57)
--- NOTE | 2024-11-11 13:00 | DVHDS2 ---
Discharge Summary Date of Admission Nov 05, 2024 at 20:36 Date of Discharge: Nov 11, 2024 Labs/Diagnostic Data: Laboratory Results Test 11/11/24 12:21 11/11/24 05:15 11/10/24 05:31 11/09/24 14:42 Differential Total Cells Counted 100.0 (100) Neutrophils % (Manual) 90 (37.0-80.0) Band Neutrophils % (Manual) 4 Lymphocytes % (Manual) 1 (10.0-50.0) Monocytes % (Manual) 2 (0-12) Eosinophils % (Manual) 0 (0-7) Basophils % (Manual) 0 (0.0-2.0) Metamyelocytes % (manual) 2 Myelocytes % (Manual) 1 Promyelocytes % (Manual) 0 Blast Cells % (Manual) 0 Reactive Lymphocytes 0 Platelet Estimate Adequate Sodium Level 137 mmol/L (136-145) Potassium Level 4.1 mmol/L (3.5-5.1) Chloride Level 95 mmol/L (98-107) Carbon Dioxide Level 24 mmol/L (20-31) Anion Gap 18 (5-15) Blood Urea Nitrogen 54 mg/dL (9-23) Creatinine 3.99 mg/dL (0.700-1.30) Glomerular Filtration Rate Calc 17 mL/min (>90) BUN/Creatinine Ratio 13.5 (10.0-20.0) Serum Glucose 91 mg/dL (74-106) Calcium Level 9.0 mg/dL (8.7-10.4) Random Vancomycin Level 18.4 ug/mL (5-10) Anisocytosis (manual) Slight Total Bilirubin 33.0 mg/dL (0.2-1.0) Aspartate Amino Transferase (AST) 424 U/L (13-40) Alanine Aminotransferase (ALT) 143 U/L (7-40) Alkaline Phosphatase 1349 U/L (46-116) Ammonia 64 umol/L (11-32) Total Protein 3.9 g/dL (5.7-8.2) Albumin 2.7 g/dL (3.2-4.8) Stool Occult Blood Positive (Negative) Stool Occult Blood Sample #3 (Negative) Test 11/09/24 05:02 11/07/24 07:29 11/06/24 17:01 11/06/24 04:25 Prothrombin Time 13.0 sec (9.3-11.8) Prothrombin Time INR 1.25 (0.9-1.15) Carcinoembryonic Antigen 1.36 ng/mL (<=5.0) Stomatocytes Few Activated Partial Thromboplast Time 42.3 SEC (24.5-34.5) Lactic Acid Level 1.9 mmol/L (0.4-2.0) Phosphorus Level 3.6 mg/dL (2.4-5.1) Magnesium Level 2.1 mg/dL (1.6-2.6) Influenza Type A Antigen Negative (Negative) Influenza Type B Antigen Negative (Negative) Smudge Cells 1 /100 WBC Tumor Marker Alpha Fetoprotein <1.8 ng/mL (0.0-8.4) Test 11/06/24 01:17 11/06/24 00:00 11/05/24 19:55 11/05/24 18:08 Plasma/Serum Blood Alcohol < 3.0 mg/dL (<10) Hepatitis A Antibody Total Positive (Negative) Hepatitis B Surface Antigen Negative (Negative) Hepatitis B Surface Antibody Negative (Negative) Hepatitis B Core Total Antibody Negative (Negative) Hepatitis C Antibody Negative (Negative) SARS-CoV-2 Antigen (Rapid) Negative (NEGATIVE) Troponin I High Sensitivity 28 ng/L (</=54) Eosinophils (%) (Auto) 0.4 % (0.0-7.0) Eosinophils # (Auto) 0.1 10 ^3/uL (0-0.8) Basophils # (Auto) 0.1 10 ^3/uL (0-0.2) Nucleated Red Blood Cells 0.1 % B-Type Natriuretic Peptide 348.36 pg/mL (0-100) Test 11/05/24 17:10 11/05/24 17:01 Lipase 25 U/L (12-53) POC Glucose 73 mg/dl (70-106) Other Laboratory Tests 11/11/24 05:15 Brief Hx & Hospital Course: Garcia Burns is a 54-year-old male with a history of liver cancer diagnosed 2 months ago, currently undergoing chemotherapy and on dialysis. He presented to the ED with hypotension after being directed there from a clinic visit. The patient is currently asymptomatic. He has been receiving dialysis through Friday, with his last session on . In the ED, he was started on oxygen, covered with vancomycin and Zosyn, and received 2 liters of IV fluids. He has produced minimal urine output and has been unable to provide a urine sample. The patient has temporal wasting, lower extremity edema up to the thigh, and ascites. His abdomen is distended but not tender. Mr. Burns has acute hypoxic respiratory failure, requiring 2 liters of oxygen to maintain a saturation of 93%. He does not have asterixis. Despite having hyperammonia of 47, there are no shelley signs of hepatic encephalopathy, and he reports no problems with bowel movements. The patient's prognosis is poor. Advanced care planning has been discussed, and he wishes to be DNR and DNI. However, he plans to continue his chemotherapy as an outpatient. POCUS done, poor window for para. off pressors. pending HD per renal. pt also has a lump on back, POCUS showed soft tissue with L PLEF and jellyfish sign. INR 1.4 c/w abx coverage. pending culture. unable to do PARA to r/o SBP will treat empirically. transfer to telemetry discussed with oncologist dr grey on [place], patient had prior hx of leukemoid reaction. patient received carboplatin and etoposide for palliative chemo. had discussion with regarding current onco treatment. patient agrees for hospice. ss consult placed. stable to dc with [facility]. lactulose, pain management sent Condition at Discharge: Guarded Final Diagnosis/Problems List - Liver cancer - End-stage renal disease on hemodialysis - Hypotension - Acute hypoxic respiratory failure - Leukocytosis - Hyponatremia - Anemia - Coagulopathy - Ascites - Pleural effusion - Hepatomegaly - Cholecystitis with gallbladder sludge - Hyperammonemia Discharge Disposition: Home with Health Services Discharge Instruct/Medications Diet: See Comment Activity: No Restrictions, As Tolerated Follow Up/Referral: oncology PCP hospice Scheduled Lactulose (Lactulose), 10 GM PO BID Midodrine HCl (Midodrine HCl), 10 MG PO TID Scheduled PRN Hydrocodone-Acetaminophen (Hydrocodone Bitartrate/AC 5-325 mg), 2 TAB PO Q8HP PRN Discharge Statement: "Patient was advised to return to the ER or call 911 if any headaches, dizziness, shortness of breath, chest pain, abdominal pain, bleeding, fevers, or worsening of medical condition. Patient was counseled about treatment plan, medications, possible side effects, patientverbalized understanding. All questions were answered to the best of my ability. This discharge took greater then 30 minutes in planning, reviewing documentation, counseling the patient, and discussing with other team members." ASSESSMENT ASSESSMENT Assessment liver cancer hypovolemic shock ESRD on HD Date of Service: Nov 11, 2024 Billing Provider: RUPAL GARNER MD Common Visit Codes: 44538-DSX/OBS DISCH DAY >30min RUPAL GARNER MD Nov 11, 2024 13:00
[2024-11-11 14:05] LABS: Nucleated Red Blood Cells % 8.0 %
[2024-11-11 14:06] LABS: Anisocytosis Slight
[2024-11-11 14:46] LABS: Polychromasia Slight; Stomatocytes Moderate
[2024-11-12] VITALS (22 sets, daily range): BP systolic 89–127; BP diastolic 47–59; PULSE 94–105; RESP 8–23; TEMP 97.8–99; O2SAT 91–100
[2024-11-12 13:55] LABS: Total Cells Counted 100.0 (100)
--- NOTE | 2024-11-12 14:46 | DVHPN2 ---
Assessment/Plan Assessment/Plan Subjective History of Present Illness Garcia Burns is a 54-year-old male with a history of liver cancer diagnosed 2 months ago, currently undergoing chemotherapy and on dialysis. He presented to the ED with hypotension after being directed there from a clinic visit. The patient is currently asymptomatic. He has been receiving dialysis through Friday, with his last session on . In the ED, he was started on oxygen, covered with vancomycin and Zosyn, and received 2 liters of IV fluids. He has produced minimal urine output and has been unable to provide a urine sample. The patient has temporal wasting, lower extremity edema up to the thigh, and ascites. His abdomen is distended but not tender. Mr. Burns has acute hypoxic respiratory failure, requiring 2 liters of oxygen to maintain a saturation of 93%. He does not have asterixis. Despite having hyperammonia of 47, there are no shelley signs of hepatic encephalopathy, and he reports no problems with bowel movements. The patient's prognosis is poor. Advanced care planning has been discussed, and he wishes to be DNR and DNI. However, he plans to continue his chemotherapy as an outpatient. POCUS done, poor window for para. off pressors. pending HD per renal. pt also has a lump on back, POCUS showed soft tissue with L PLEF and jellyfish sign. INR 1.4 c/w abx coverage. pending culture. unable to do PARA to r/o SBP will treat empirically. transfer to telemetry discussed with oncologist dr grey on [place], patient had prior hx of leukemoid reaction. patient received carboplatin and etoposide for palliative chemo. had discussion with regarding current onco treatment. patient agrees for hospice. ss consult placed. if vitals still stable will dc tomorrow and stop abx seen today, dc delayed for transport. discharge today Objective Vital Signs - Blood Pressure: 87/53 mmHg (MAP 64) - Respiratory Rate: 21 breaths per minute - Heart Rate: 95 bpm - Oxygen Saturation: 93% on 2 liters oxygen Physical Examination General: Alert and oriented x4. Temporal wasting noted. Respiratory: Clear breath sounds. Cardiovascular: No JVD observed. Abdomen: Distended, non-tender. Ascites present. Musculoskeletal: Lower extremity edema up to thigh. Neurological: No asterixis observed. Laboratory, Imaging, and Diagnostic Test Results - CBC: WBC 20 (elevated), Hemoglobin 9.9 g/dL - Electrolytes: Sodium 128 (low), Creatinine 3.94, BUN 30 - Liver Function Tests: AST 244, ALT 126, Alkaline Phosphatase 1352 Bili >35 - Glucose: Low (value not specified) - Ammonia: 47 - INR: 4.5 - CT Abdomen: Hepatomegaly with numerous liver masses, perihepatic ascites, diffuse anasarca, small bilateral pleural effusions - Chest X-ray: Bilateral patchy opacities and bilateral pleural effusions - Liver Ultrasound: Cholelithiasis and gallbladder sludge without sonographic evidence of acute cholecystitis, hepatomegaly, marked heterogeneous attenuation throughout the liver Assessment & Plan Assessment - Liver cancer - End-stage renal disease on hemodialysis - Hypotension - Acute hypoxic respiratory failure - Leukocytosis - Hyponatremia - Anemia - Coagulopathy - Ascites - Pleural effusion - Hepatomegaly - Cholecystitis with gallbladder sludge - Hyperammonemia Plan - Continue dialysis as scheduled - Continue oxygen therapy at 2 liters - Continue vancomycin and Zosyn - Continue IV fluid administration - Consult Renal for resumption of dialysis - Administer lactulose - Administer subcutaneous vitamin K - Hold DVT prophylaxis due to coagulopathy - Resume hepatic diet - Swab for COVID and influenza - Plan for paracentesis tomorrow if condition improves - poor pocket window, will defer para - Continue outpatient chemotherapy - Implement DNR and DNI status as per patient's wishes Diet: hepatic diet DVT PPX: holding DVT prophylaxis for coagulopathy GI PPX: Not indicated. Code Status: DNR, DNI 30 minutes spent advance goals of care Plan discussed with: Patient My Orders Orders - RUPAL GARNER MD Procedure Category Date Status Time Discharge DISCHARGE 11/12/24 Transmitted 09:32 Date of Service: Nov 12, 2024 Billing Provider: RUPAL GARNER MD Common Visit Codes: 30120-ZMB/OBS DISCH DAY >30min RUPAL GARNER MD Nov 12, 2024 14:46
== END 2024-11-12 13:49 | disposition hospice, home (50) | DRG 871 ==
LOC: ER 16:37 → EDBD 16:37 → OVERFLOW 20:36 → DOU 11-07 23:55
PROVIDERS: ADMIT Student in an Organized Health Care Education/Training Program; ATTEND Student in an Organized Health Care Education/Training Program
PROC: 5A1D70Z Performance of Urinary Filtration, Intermittent, Less than 6 Hours Per Day (ICD-10-PCS; 2024-11-07)
PROC: 30233N1 Transfusion of Nonautologous Red Blood Cells into Peripheral Vein, Percutaneous Approach (ICD-10-PCS; principal; 2024-11-10)
PROC: 5A1D70Z Performance of Urinary Filtration, Intermittent, Less than 6 Hours Per Day (ICD-10-PCS; 2024-11-10)
DX: A41.9 Sepsis, unspecified organism (principal); G93.41 Metabolic encephalopathy; J96.01 Acute respiratory failure with hypoxia; R57.1 Hypovolemic shock; N18.6 End stage renal disease; E87.1 Hypo-osmolality and hyponatremia; N17.9 Acute kidney failure, unspecified; C22.0 Liver cell carcinoma; D68.9 Coagulation defect, unspecified; J90 Pleural effusion, not elsewhere classified; R18.8 Other ascites; E72.20 Disorder of urea cycle metabolism, unspecified; E44.0 Moderate protein-calorie malnutrition; Z66 Do not resuscitate; Z20.822 Contact with and (suspected) exposure to COVID-19; K81.9 Cholecystitis, unspecified; I95.9 Hypotension, unspecified; E88.09 Other disorders of plasma-protein metabolism, not elsewhere classified; K82.8 Other specified diseases of gallbladder; K76.82 Hepatic encephalopathy; E80.6 Other disorders of bilirubin metabolism; K74.60 Unspecified cirrhosis of liver; D64.9 Anemia, unspecified; K72.90 Hepatic failure, unspecified without coma; E16.2 Hypoglycemia, unspecified; Z87.891 Personal history of nicotine dependence; Z99.2 Dependence on renal dialysis; Z68.27 Body mass index [BMI] 27.0-27.9, adult
CPT/HCPCS: 36415; 36430; 71045; 74176; 76705; 80048; 80053; 80202; 80320; 82105; 82140; 82270; 82378; 82565; 82962; 83605; 83690; 83735; 83880; 84100; 84484; 85007; 85014; 85018; 85025; 85027; 85610; 85730; 86704; 86706; 86708; 86803; 86850; 86900; 86901; 86920; 87040; 87081; 87340; 87426; 87804; 90935; 93005; 93306; 94640; 96361; 96365; 96375; 99291; G0378; J1642; J2405; J2543; J3430; P9047